=== PATIENT | male | born 1945 | race Caucasian/White ===

== ENCOUNTER 2024-02-17 08:37 | Outpatient (REF) | payer MEDICARE, SELFPAY ==
--- NOTE | ~2024-02-17 | XR_ITS ---
EXAMINATION: XR PELVIS CLINICAL INFORMATION: Hip pain. COMPARISON: None available. TECHNIQUE: 2 AP views of the pelvis. FINDINGS: Degenerative changes in the imaged lower lumbar spine. Diffuse demineralization. Atherosclerotic vascular calcifications. Linear radiodense tiny devices overlie the pubic symphysis. Left total hip arthroplasty appears intact and AP views. Severe degenerative changes right hip with superolateral joint space narrowing and abundant hypertrophic change. XR/XR pelvis 1-2V IMPRESSION: 1. Severe degenerative changes in the right hip. 2. Left total hip arthroplasty appears intact and AP views.
== END 2024-02-17 08:38 | disposition home or self-care (01) ==
LOC: HO.HOSX 08:37
PROVIDERS: Visit Provider Orthopaedic Surgery
DX: M16.11 Unilateral primary osteoarthritis, right hip (principal); Z96.642 Presence of left artificial hip joint
CPT/HCPCS: 72170; 99202

== ENCOUNTER 2024-02-17 11:02 | Outpatient (AMB) | payer MEDICARE, SELFPAY ==
--- NOTE | 2024-02-17 11:30 | A.OFFVIS_ITS ---
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 Patient express he had been pain for a few years but over the past 6 monthly the pain has gradually worsened and is now consistent. He is unable to stand up straight due to his pains. Ambulation and getting up from sitting or out of car has become the most difficult. He says by the time he made it into the office from the parking lot for this visit his him/leg was in severe pain. Has tried Tylenol with very little relief. Denies numbness, tingling, and injury to right hip. Would like to talk about surgery, has not been able to go back to the gym in 4 years and would like to get back to it. hx of left KAYLA done in [place] 2 years ago. hx of pre-diabetes , claims it is under control. 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 Patient express he had been pain for a few years but over the past 6 monthly the pain has gradually worsened and is now consistent. He is unable to stand up straight due to his pains. Ambulation and getting up from sitting or out of car has become the most difficult. He says by the time he made it into the office from the parking lot for this visit his him/leg was in severe pain. Has tried Tylenol with very little relief. Denies numbness, tingling, and injury to right hip. Would like to talk about surgery, has not been able to go back to the gym in 4 years and would like to get back to it. hx of left KAYLA done in [place] 2 years ago. hx of pre-diabetes , claims it is under control. Physical Exam Vital Signs: BMI result Body Mass Index 27.8 Extrem Other: + impingement and severe branden niwth passive motion right hip + Trendelenberg gait Results Reviewed Results Reviewed: I personally reviewed relevant radiographs. Severe right hip OA Left KAYLA in expected post operative position with no hardware complications or evidence of loosening Assessment & Plan Assessment & Plan (1) Arthritis of right hip: Code(s): M16.11 - Unilateral primary osteoarthritis, right hip Category: Medical Plan: This is an active 78 yo M with severe chronic right hip pain secondary to hip OA. He is unable to ambulate comfortably or exercise. He is on coumadin and a diabetic. I discussed treatment options with him. He had a successful left KAYLA and I recommend right hip arthroplasty. I discussed the risks benefits and alternatives including but not limited to the risk of pain, infection, stiffness, need for further surgery as well as potential medical complications such as blood clots, pulmonary embolism and cardiac complications. He will need medical clearance and we will initiate our pre-operative clearance process. He is very uncomfortable and we will try to expedite this. Orders: Orders XR pelvis 1-2V 02/17/24 M25.559 - Pain in unspecified hip Coding Level of Care Code New Pt Level 4 (91120) Diagnoses Arthritis of right hip M16.11
[2024-02-17 11:43] VITALS: BMI 27.8
== END 2024-02-17 12:17 | disposition home or self-care (01) ==
PROVIDERS: PCP Nurse Practitioner Adult Health; Visit Provider Orthopaedic Surgery
DX: M16.11 Unilateral primary osteoarthritis, right hip (principal)
CPT/HCPCS: 99204

== ENCOUNTER → 2024-02-22 09:04 | Outpatient (BNVA) | payer MEDICARE, SELFPAY | PROVIDERS: PCP Nurse Practitioner Adult Health | DX: Z01.818 Encounter for other preprocedural examination (principal) ==

== ENCOUNTER 2024-03-16 10:24 | Outpatient (REF) | payer MEDICARE, SELFPAY ==
--- NOTE | ~2024-03-16 | XR_ITS ---
EXAMINATION: XR HIP, RIGHT CLINICAL INFORMATION: Preop right hip total arthroplasty. COMPARISON: 02/17/2024. TECHNIQUE: Three views of the right hip. FINDINGS: -Surgical measuring devices overlie the central and right paramedian pelvis. PELVIS: -Diffuse demineralization. -There is been a total left hip arthroplasty with femoral and acetabular components intact and in anatomic alignment. No evidence of periprosthetic lucency, fracture, subsidence, or complication. Mild heterotopic bone abutting the lateral acetabular prosthesis, unchanged. -Partial ankylosis of both SI joints. -Severe spondylosis of L5-S1 with bridging osteophytes. -No suspicious bone lesions. -Enthesopathy of the gluteal and hamstrings insertions. -Soft tissues demonstrate vascular calcifications. -Fiducial markers in the region of the prostate gland. -Calcification of the vas deferens. RIGHT HIP: -Severe osteoarthritis present with complete loss of superior joint space, [id number] appearance, subchondral cysts sclerosis and cystic changes of both the superior femoral head and acetabulum. There are proliferative prominent subcapital and marginal acetabular osteophytes. No subchondral collapse. XR/XR hip RT min 2V IMPRESSION: 1. Severe osteoarthritis right hip joint. 2. No acute findings. 3. Left total hip arthroplasty without complication. 4. Ancillary findings as discussed. Electronically signed by: Denis Elise MD 05/08/2024 03:30 PM EDT
== END 2024-03-16 10:25 | disposition home or self-care (01) ==
LOC: HO.HOSX 10:24
PROVIDERS: Visit Provider Physician Assistant
DX: M25.551 Pain in right hip (principal)
CPT/HCPCS: 73502

== ENCOUNTER → 2024-03-16 13:19 | Outpatient (BNV) | payer MEDICARE, SELFPAY | PROVIDERS: Visit Provider Radiology Diagnostic Radiology | DX: M16.11 Unilateral primary osteoarthritis, right hip (principal) | CPT/HCPCS: 73502 ==

== ENCOUNTER 2024-03-17 10:50 | Outpatient (AMB) | payer MEDICARE, SELFPAY ==
--- NOTE | 2024-03-17 09:15 | MHC.OFFVIS ---
Vital Signs 03/17/24 10:58 Height 6 ft Weight 205 lb BMI 27.8 Intake Visit Reasons: Pre-Op: R KAYLA w/NE 03/21/24 Intake Note: Radu a 78 year old male who presents today for a preoperative visit for his right KAYLA on 03/21/24 with NE. Pain management agreement reviewed and signed. Allergies No Known Allergies Allergy (Verified 03/17/24 10:57) Medication List - Last Reconciled 03/17/24 by Delisa Hartmann PA-C allopurinol 100 mg PO QPM atorvastatin 10 mg PO QPM dorzolamide 2% 1 drp ophthalmic (eye) BID glipizide 2.5 mg PO QPM latanoprost 0.005% 1 drp ophthalmic (eye) BEDTIME lisinopril 10 mg PO QAM multivitamin 1 tab PO QAM walker Folding Front wheeled walker warfarin 5 mg PO QAM HPI Comments Details: Mr Portillo presents to the office today for preop visit. He is scheduled for right total hip arthroplasty with Dr. Ramirez. He continues to have ongoing pain and difficulty with ambulation in the right hip, which is affecting his quality of life; therefore, he has elected to move forward with surgery. [facility] Medical History (Updated 03/13/24 @ 14:16 by Milena Flowers RN) Arthritis Sleep apnea Chronic renal insufficiency Aortic stenosis Gout Hyperlipidemia Atrial fibrillation Prostate cancer Diabetes HTN (hypertension) Surgical History Hx of bilateral cataract extraction Hx of cholecystectomy History of lobectomy of thyroid H/O colonoscopy History of total left hip arthroplasty Social History Housing Other:: apartment in a 4 family home Are you a primary child care education coordinator to a significant other at home: No Do you presently have visiting nurse or other home services: No Patient Tobacco Use Status: Never used Tobacco Review of Systems Const All systems reviewed & are unremarkable except as noted in HPI and below Physical Exam Vital Signs: BMI result Body Mass Index 27.8 Const General: cooperative, healthy appearing, comfortable, no acute distress, well developed and alert Orientation/consciousness: patient oriented x3 HEENT Head: Yes normal to inspection, Yes normocephalic and Yes atraumatic Eyes General: appearance normal, both eyes and all related structures Neck Neck: Yes normal visual inspection and Yes no lymphadenopathy Resp Effort & Inspection: normal respiratory effort and able to speak in complete sentences Cardio Rate: regular rate Peripheral pulses: Peripheral pulses 2+ throughout GI Inspection: Yes normal to inspection Palpation (GI): Soft to palpation Skin General skin exam: no rashes or lesions noted Neuro General: patient oriented x3 Extrem Other: Right hip: Normal to inspection. No open wound or abrasion. Pain with ROM of hip and hip flexion. Calf supple, nontender. NVI. Psych Appearance: grossly normal Mental Status: mental status grossly normal Assessment & Plan Assessment & Plan (1) Arthritis of right hip: Code(s): M16.11 - Unilateral primary osteoarthritis, right hip Category: Medical Plan I discussed in detail the procedure and what to expect pre and post operatively. We discussed the risks, benefits and alternatives to the surgery as well as the rehabilitation course. The risks; which include, but are not limited to infection, bleeding, nerve injury, ongoing pain, swelling, and stiffness, perioperative risk of injury to bones and soft tissues, and blood clots. I?ve answered all questions and with their understanding they have consented to move forward with Right total hip arthroplasty with Dr. Ramirez Coumadin for afib--> no bridging , resume the night of surgery Mod-severe aortic stenosis. SHARAD: No need for CPAP >5years d/t weight loss DM: glipizide only, A1C 7.1% Pre op clearance note from PCP---> Orders: Orders PT Evaluation and Treatment Today Z96.641 - Presence of right artificial hip joint Patient Instructions: Scribed for Delisa Hartmann PA-C, by Darrell Celis medical records library professor, on 03/17/2024 at 11:00 AM EST.? I, Delisa Hartmann PA-C, have personally reviewed and agree with the information entered by the scribe. Coding Level of Care Code Est Pt Level 3 (05755) Diagnoses Arthritis of right hip M16.11
[2024-03-17 10:58] VITALS: BMI 27.8
== END 2024-03-17 11:20 | disposition home or self-care (01) ==
PROVIDERS: PCP Nurse Practitioner Adult Health; Visit Provider Physician Assistant
DX: M16.11 Unilateral primary osteoarthritis, right hip (principal)
CPT/HCPCS: 99024

== ENCOUNTER → 2024-03-17 10:50 | Outpatient (BNVA) | payer MEDICARE, SELFPAY | PROVIDERS: PCP Nurse Practitioner Adult Health; Visit Provider Physician Assistant | DX: Z01.818 Encounter for other preprocedural examination (principal); M16.11 Unilateral primary osteoarthritis, right hip | CPT/HCPCS: 99212 ==

== ENCOUNTER → 2024-03-21 06:05 | Outpatient (BNV) | payer MEDICARE, SELFPAY | PROVIDERS: PCP Nurse Practitioner Adult Health; Visit Provider Orthopaedic Surgery | DX: M16.11 Unilateral primary osteoarthritis, right hip (principal); Z47.1 Aftercare following joint replacement surgery; Z96.641 Presence of right artificial hip joint | CPT/HCPCS: 27130; 99024 ==

== ENCOUNTER → 2024-03-21 06:05 | Outpatient (BNV) | payer MEDICARE, SELFPAY | PROVIDERS: PCP Nurse Practitioner Adult Health; Visit Provider Physician Assistant | DX: I48.91 Unspecified atrial fibrillation (principal); I35.0 Nonrheumatic aortic (valve) stenosis; M16.11 Unilateral primary osteoarthritis, right hip | CPT/HCPCS: 99222 ==

== ENCOUNTER → 2024-03-21 06:05 | Outpatient (BNV) | payer MEDICARE, SELFPAY | PROVIDERS: PCP Nurse Practitioner Adult Health; Visit Provider Internal Medicine | DX: I48.91 Unspecified atrial fibrillation (principal); I35.0 Nonrheumatic aortic (valve) stenosis | CPT/HCPCS: 93010; 99223 ==

== ENCOUNTER 2024-03-21 06:19 | Inpatient (IN) | payer MEDICARE, SELFPAY ==
[2024-03-13 14:19] VITALS: BP 136/61; PULSE 58; RESP 20; O2SAT 97; BMI 28.7
--- NOTE | 2024-03-13 14:40 | HO.ANESPROP2 ---
Documented by User: Freida Saenz NP 03/20/24 09:17 HPI - Anesthesia Eval Consult details Narrative: 78yo M for Right Hip Total Replacement, 03/21/24 Medically optimized per [facility] preop clinic Cardiac optimized per [facility] cardiology No recent illness No CP/SOB with walking regularly No edema, no orthopnea Coumadin for afib Mod-severe aortic stenosis. SHARAD: No need for CPAP >5years d/t weight loss DM: glipizide only, A1C 7.1% High risk case reviewed with Dr Alvarado. [facility] Active Problems Active Problems: All Active Problems Arthritis of right hip (Acute) Past Medical History Medical History Arthritis Sleep apnea Chronic renal insufficiency Aortic stenosis Gout Hyperlipidemia Atrial fibrillation Prostate cancer Diabetes HTN (hypertension) Family History Family history of problems with anesthesia: Unobtainable (Pt adopted) Surgical History Surgical History Hx of bilateral cataract extraction Hx of cholecystectomy History of lobectomy of thyroid H/O colonoscopy History of total left hip arthroplasty History of Problems with Anesthesia: No Social History Social History Housing Other:: apartment in a 4 family home Are you a primary home health care coordinator to a significant other at home: No Do you presently have visiting nurse or other home services: No Patient Tobacco Use Status: Never used Tobacco Use of substances other than those prescribed or required for medical reasons: No Have you been hit, kicked, punched, or otherwise hurt by someone within the past year? If so, by whom?: No Are you DNR?: No Advance Directives Information Provided: Yes (as above noted) Advance Directives on File: No Recently lost weight without trying: No Eating poorly because of decreased appetite: No Nutrition Risks: No Nutritional Risk Poor oral hygiene: No (edentulous) Meds Allergies Allergy/AdvReac Type Severity Reaction Status Date / Time No Known Allergies Allergy Verified 03/21/24 07:09 Home Medications ?Medication ?Instructions ?Recorded ?Confirmed ?Last Taken ?Type allopurinol 100 mg tablet 100 mg PO QPM 02/17/24 03/17/24 Unknown History atorvastatin 10 mg tablet 10 mg PO QPM 02/17/24 03/17/24 Unknown History glipizide 2.5 mg tablet 2.5 mg PO QPM 02/17/24 03/17/24 Unknown History warfarin 5 mg tablet 5 mg PO QAM 02/17/24 03/17/24 03/16/24 History dorzolamide 2 % eye drops 1 drp ophthalmic (eye) BID 03/10/24 03/17/24 Unknown History latanoprost 0.005 % eye drops 1 drp ophthalmic (eye) BEDTIME 03/10/24 03/17/24 Unknown History lisinopril 10 mg tablet 10 mg PO QAM 03/10/24 03/17/24 Unknown History multivitamin 1 tab PO QAM 03/13/24 03/17/24 Unknown History Exam Height,Weight and Vital Signs: Height 6 ft Weight 96.162 kg Last Vital Signs Pulse 58 03/13/24 14:19 Resp 20 03/13/24 14:19 BP 136/61 03/13/24 14:19 Pulse Ox 97 03/13/24 14:19 O2 Del Method Room Air 03/13/24 14:19 Pertinent Lab Results Pertinent Lab Results: Lab Results 03/13/24 03/13/24 Range/Units 14:30 15:11 Nasal Screen MRSA (PCR) NEGATIVE (Negative) Nasal S. aureus Screen NEGATIVE (Negative) Nasal MRSA/S.aureus Interp SEE NOTE Blood Type B Positive Antibody Screen NEGATIVE Narrative Narrative: EKG 09/2023 Ventricular Rate: 51 BPM QRS Duration: 72 ms Q-T Interval: 474 ms QTC Calculation(Bazett): 436 ms R Agenda: -22 degrees T Agenda: 16 degrees Atrial fibrillation with slow ventricular response Nonspecific ST abnormality Abnormal ECG When compared with ECG of 23-SEP-2023 09:52, No significant change was found Confirmed by AMANDA CANAS, LISS ([id number]) on 09/26/2023 7:48:19 PM ECHO 01/2024 Summary The left ventricular size is normal. Left ventricular wall thickness is normal. The LV systolic function is normal . The left ventricular ejection fraction is 60-65 %. No definite regional wall motion abnormalities. Unable to assess diastolic function due to atrial fibrillation. There is moderate to severe aortic stenosis. There is a peak gradient of 40 mmHg, mean gradient of 20mmHg with a calculated valve area of 1.0 cm2 and OI of 0.26. There is no evidence of aortic regurgitation. There is mild dilation of the aortic root (3.9 cm) . The right ventricle is normal in size and function. The pulmonary artery systolic pressure estimation is 30-35 mmHg. Biatrial enlargement. Comparison Comparison is made to the study of August 10, 2023. There is no significant change. Airway Loose/Missing/Broken Teeth: Yes (Edentulous) Heart: RRR +M Lungs: CTAB Assessment and Plan Assessment Anesthesia Assessment: Anesthesia Plan Discussed and PAT Visit Final Anesthetic Review Family History of Problems with Anesthesia: Unobtainable (Pt adopted) History of Problems with Anesthesia: No Documented by User: Ashu Brunson MD 03/21/24 10:07 [facility] Past Medical History Medical History Arthritis Sleep apnea Chronic renal insufficiency Aortic stenosis Gout Hyperlipidemia Atrial fibrillation Prostate cancer Diabetes HTN (hypertension) Surgical History Surgical History Hx of bilateral cataract extraction Hx of cholecystectomy History of lobectomy of thyroid H/O colonoscopy History of total left hip arthroplasty Social History Social History Housing Other:: apartment in a 4 family home Are you a primary home health care coordinator to a significant other at home: No Do you presently have visiting nurse or other home services: No Patient Tobacco Use Status: Never used Tobacco Use of substances other than those prescribed or required for medical reasons: No Have you been hit, kicked, punched, or otherwise hurt by someone within the past year? If so, by whom?: No Are you DNR?: No Advance Directives Information Provided: Yes (as above noted) Advance Directives on File: No Recently lost weight without trying: No Eating poorly because of decreased appetite: No Nutrition Risks: No Nutritional Risk Poor oral hygiene: No (edentulous) Meds Allergies Allergy/AdvReac Type Severity Reaction Status Date / Time No Known Allergies Allergy Verified 03/21/24 07:09 Home Medications ?Medication ?Instructions ?Recorded ?Confirmed ?Last Taken ?Type allopurinol 100 mg tablet 100 mg PO QPM 02/17/24 03/17/24 Unknown History atorvastatin 10 mg tablet 10 mg PO QPM 02/17/24 03/17/24 Unknown History glipizide 2.5 mg tablet 2.5 mg PO QPM 02/17/24 03/17/24 Unknown History warfarin 5 mg tablet 5 mg PO QAM 02/17/24 03/17/24 03/16/24 History dorzolamide 2 % eye drops 1 drp ophthalmic (eye) BID 03/10/24 03/17/24 Unknown History latanoprost 0.005 % eye drops 1 drp ophthalmic (eye) BEDTIME 03/10/24 03/17/24 Unknown History lisinopril 10 mg tablet 10 mg PO QAM 03/10/24 03/17/24 Unknown History multivitamin 1 tab PO QAM 03/13/24 03/17/24 Unknown History Exam Airway Mallampati Class: II TM Dist: >3cm Neck ROM: Full Denture: Upper and Lower Assessment and Plan Final Anesthetic Review NPO: Yes ASA Class: III Final Preanesthetic Review: No Changes in Pt Med Stat, Meds/Allgs Chart Reviewed, Consent Obtained/Reviewed and Anes Risks/Benef Reviewed Patient Risk: High Procedure Risk: Intermediate Anesthetic Plan Anesthetic Plan: GA Disposition: Standard PACU
[2024-03-13 16:11] LABS: MRSA Nasal PCR NEGATIVE (Negative); SA Nasal PCR NEGATIVE (Negative)
[2024-03-21] VITALS (27 sets, daily range): BP systolic 93–148; BP diastolic 34–72; PULSE 30–51; RESP 6–18; TEMP 36.1–36.8; O2SAT 94–100; BMI 28.5
--- NOTE | 2024-03-21 | ECG_ITS ---
Test Reason : bradycardia Blood Pressure : / mmHG Vent. Rate : 038 BPM Atrial Rate : 000 BPM P-R Int : 000 ms QRS Dur : 076 ms QT Int : 560 ms P-R-T Axes : 000 -23 025 degrees QTc Int : 445 ms Atrial fibrillation with slow ventricular response Low voltage QRS Abnormal ECG No previous ECGs available Referred By: Ashu Brunson Electronically Signed By:CAMILA ROE
--- NOTE | ~2024-03-21 | XR_ITS ---
EXAMINATION: XR PELVIS CLINICAL INFORMATION: Total right hip arthroplasty. COMPARISON: Right hip radiographs dated 03/16/2024. TECHNIQUE: AP view of the pelvis. FINDINGS: Status post total right hip arthroplasty in expected anatomic alignment. No hardware or osseous fracture. No perihardware lucency. No radiopaque foreign body. Redemonstration of a left hip arthroplasty without evidence of complication. XR/XR pelvis 1-2V IMPRESSION: Status post total right hip arthroplasty without evidence of complication.
[2024-03-21] MEDS: Lactated Ringers 1,000 ML 100 ML IVCONT (06:36)
[2024-03-21 07:03] LABS: Glucose, Whole Blood 152 mg/dL (60-115)
[2024-03-21 07:15] LABS: INTERNATIONAL NORM RATIO 1.2 (0.9-1.1); Prothrombin Time 14.5 SEC (11.1-13.3)
--- NOTE | 2024-03-21 07:24 | PC.NURSE ---
dr. alejandre updated that patient pulse can be as low as 40 at rest. baseline is 50-51 awake. at bedside. no interventions at this time. ok to proceed.
--- NOTE | 2024-03-21 07:31 | MHC.SHP ---
Pre-Procedural Eval Section A - 24 Hr Update-Section A only Date of Service: 03/21/24 The patient is an INPATIENT: No Changes since office visit: No Cold of Flu in the past 2 weeks, No New Medical Problems, No Changes in Medication and No Patient answered all questions The patient has been examined within 24 hours of the surgical procedure. The History & Physical has been completed within 30 days and I have reviewed it.: Yes Section B - Complete if H&P > 30 days Chief Complaint: Unilateral primary osteoarthritis, right hip Allergies: Allergies Allergy/AdvReac Type Severity Reaction Status Date / Time No Known Allergies Allergy Verified 03/21/24 07:09 Plan I have reviewed the history and physical and performed a pertinent physical examination on my patient. No changes have occurred unless specified. Time Spent With Patient Time: Total time managing care of this patient today ____ minutes.
--- NOTE | 2024-03-21 09:37 | P.BOP_ITS ---
Brief Operative Note Date of Service: 03/21/24 Pre-op diagnosis: Right hip OA Post-op diagnosis: same Procedure: Right KAYLA Implants: Zi Trident2 58, 35 mm, 30 mm 6.5 screws, 20 deg liner Zi Accolade2 #[id number] with + 5/36 ceramic femoral head Surgeon: Luiz Ramirez MD Anesthesia: GETA Was an Laborer Heading used for this Procedure?: Yes Laborer Heading: Delisa Hartmann Estimated blood loss (mL): 200 IV fluids (mL): 1,000 Pathology: other Condition: stable Disposition: PACU
--- NOTE | 2024-03-21 09:41 | W.PM.OPN ---
Operative Note Operative Note Date of Service: 03/21/24 Narrative: Date of Service: 03/21/24 Pre-op diagnosis: Right hip OA Post-op diagnosis: same Procedure: Right KAYLA Implants: [place] Trident2 58, 35 mm, 30 mm 6.5 screws, 20 deg liner Zi Accolade2 #5 127 with + 5/36 ceramic femoral head Surgeon: Luiz Ramirez MD Anesthesia: GETA Was an Motor Patrol Operator used for this Procedure?: Yes Motor Patrol Operator: Delisa Hartmann Estimated blood loss (mL): 200 IV fluids (mL): 1,000 Pathology: other Condition: stable Disposition: PACU Patient was brought into the operating room and placed in the right lateral decubitus position. All bony prominences were well padded and the limb was prepped and draped in standard sterile fashion. A time-out was called to identify proper site procedure proper surgeon IV antibiotics and 1 g of tranexamic acid were administered. His hip was in fixed external rotation. I could not internally rotate it to neutral. He was mildly flexed. I began by making a curvilinear incision over the posterolateral aspect of the greater trochanter. Dissection was taken down to the tensor fascia which was incised in line with the incision and a Charnley retractor was placed. Cautery was used to maintain hemostasis. The hip was internally rotated as much as possible and the external rotators were identified. The vessels were cauterized and a full-thickness capsular/external rotator layer was developed starting just proximal to the piriformis. This layer was tagged and a dull Hohmann retractor was placed underneath the neck in the hip was dislocated. A neck cut was made 1 cm proximal to the lesser trochanter and the head and neck were removed and measured 55mm on the back table. The head was deformed and eburnated. I then removed the labrum and cauterized the fovea. I started with a 48 reamer and medialized to the inner table. I sequentially reamed up to a size 58 and impacted a 58mm cup at 45 degrees of inclination and 25 degrees of version. The cup was shallow and flattened posteriorly. I therefore placed 2 acetabular screws 1 measuring 35 mm and 130 mm. Standard AO technique was used and the screw was intraosseous at all times. I then placed my 20 degree posterior lipped liner. There were extensive osteophytes superiorly, medially and inferiorly. I removed these osteophytes from around the acetabulum to prevent impingement. A small curved osteotome was used and the soft tissues were protected with a dull Hohmann retractor. A Werewolf cautery wand was used to maintain hemostasis. I identified the piriformis insertion and used this as a starting point for my laurieie cutter. The medius tendon was protected with a Hibs retractor. A Charnley awl was inserted in the canal and a curved curette used to remove the lateral bone. I irrigated copiously. I then sequentially broached in the patient's natural version to a size 5 and placed my trial implants. I used a #5/127/+0 based on my pre-operative template. He continued to be stiff ain internal rotation but improved from prior. The +0 dislocated with 5-10 degrees of internal rotation while flexed. Therefore I placed a +5 trial and was much more satisfied with the stability. I removed all instrumentation and copiously irrigated. I placed my final femoral implant and again took the hip through range of motion and was satisfied with the stability and length. The final +5 implant was impacted in place and the hip reduced. I then irrigated copiously and placed 1 g of local tranexamic acid. I performed a capsular closure with 2.0 fiberwire, Angeles's fascia with 0 Vicryl, subcuticular with 2-0 Vicryl and the skin with naomi. Patient was placed into a sterile dressing. Patient was extubated brought to the recovery room in stable condition. There were no known complications.
--- NOTE | 2024-03-21 10:15 | PM.DS ---
DS: Providers Provider Date of Service: 03/21/24 <Delisa Hartmann PA-C - Last Filed: 03/21/24 14:00> Primary care physician: Lou Hernandez NP <Alison Lynch PA-C - Last Filed: 03/21/24 10:17> DS: Transfer Hospital Acceptance Reason for Transfer: Lost HR post op <Delisa Hartmann PA-C - Last Filed: 03/21/24 14:00> Name of Facility: [facility] <Delisa Hartmann PA-C - Last Filed: 03/21/24 14:00> Accepting Provider: <Delisa Hartmann PA-C - Last Filed: 03/21/24 14:00> DS: Summary Hospital Course Hospital Course: The patient underwent a successful right total hip arthroplasty, they were transferred to PACU and while in PACU his HR dropped into the 30's. Cardiology consult was placed STAT with the following recommendations. Per documentation, he does have atrial fibrillation with somewhat slow response which indicates underlying conduction system disease. He is not on any rate control drugs or antiarrhythmics at baseline. The current worsening of bradycardia could be related to the anesthesia as well as pain medications. Clinically, he seems hemodynamically stable and does not have any presyncope type symptoms. Continue to monitor. Transcutaneous pads. Message sent to Dr. Castro as well as EP- Dr. Mann regarding further care including indication for pacemaker. (2) Nonrheumatic aortic (valve) stenosis: Status: Acute Per 's note, thought to be moderate to severe aortic stenosis but more so in the moderate range. Not thought to be hemodynamically significant at this time. No acute implications in this setting but aortic stenosis can increase vivian-operative complication rate including postoperative hypotension extra. However, he seems hemodynamically stable now. ADDENDUMAlso discussed with Dr. Mann-recommends telemetry floor in [facility]. Awaiting bed. ADDENDUMDiscussed with . Accepted for transfer. Potentially pacemaker placement. POD 0 the patient should resume his home dose of Coumadin 5mg PO QAm with an INR goal of 2-3 PT/OT: WBAT with a walker, gait training, glute / hip flexor strength, posterior precautions Keep Aquacel dressing clean dry and intact at all times Any questions please contact [facility] [phone] Post op Appt 04/06/24 13:30 [facility] [place] [place] [facility] Delisa Hartmann PA-C <Alison Lynch PA-C - Last Filed: 03/21/24 10:17> Time Attestation Discharge Coordination Time (in mins): 30 <Delisa Hartmann PA-C - Last Filed: 03/21/24 14:00> Quality: Safe Use of Opioids Does Pt have an Active Cancer Diagnosis on the Problem List?: No <Delisa Hartmann PA-C - Last Filed: 03/21/24 14:00> Quality: Stroke Does the patient have a stroke diagnosis?: No <Delisa Hartmann PA-C - Last Filed: 03/21/24 14:00> Physical Exam Vital Signs: Vital Signs: Last Vital Signs Temp 97 F 03/21/24 09:50 Pulse 38 L 03/21/24 10:05 Resp 18 03/21/24 10:05 BP 121/34 L 03/21/24 10:05 Pulse Ox 95 03/21/24 10:05 O2 Del Method Nasal Cannula 03/21/24 10:05 O2 Flow Rate 2 03/21/24 10:05 BMI result Body Mass Index 28.5 <Alison Lynch PA-C - Last Filed: 03/21/24 10:17> Const: General: cooperative, healthy appearing and no acute distress <Alison Lynch PA-C - Last Filed: 03/21/24 10:17> Resp: Effort & Inspection: normal respiratory effort and able to speak in complete sentences <Alison Lynch PA-C - Last Filed: 03/21/24 10:17> Cardio: Rate: regular rate <Alison Lynch PA-C - Last Filed: 03/21/24 10:17> Peripheral pulses: Peripheral pulses 2+ throughout <Alison Lynch PA-C - Last Filed: 03/21/24 10:17> GI: Palpation (GI): Soft to palpation <CLARICE MontoyaC - Last Filed: 03/21/24 10:17> Skin: Lesions: no lesions <Alison Lynch PA-C - Last Filed: 03/21/24 10:17> Rashes: no rashes <Alison Lynch PA-C - Last Filed: 03/21/24 10:17> Extrem: Other: right hip dressing is c/d/i. Able to dorsi/plantar flex. Calf is supple and nontender. Sensation intact. Pedal pulse intact. <Alison Lynch PA-C - Last Filed: 03/21/24 10:17> DS: Data Data Completed and Pending Pending studies at discharge: Pending at discharge 03/21/24 08:22 Surgical [PTH] Routine <ROB Montoya Last Filed: 03/21/24 10:17> Labs on day of discharge: Laboratory Results - last 24 hr 03/21/24 03/21/24 06:44 06:58 PT 14.5 H INR 1.2 H POC Glucose 152 H <Alison Lynch PA-C - Last Filed: 03/21/24 10:17> Discharge Plan Discharge Patient Disposition: Home, Self-Care <Alison Lycnh PA-C - Last Filed: 03/21/24 10:17> Referrals: Delisa Hartmann PA-C [Physician Metal Fabricator Apprentice] - 04/06/24 1:30 pm <Alison Lynch PA-C - Last Filed: 03/21/24 10:17> Discharge Medications: No Action (DME) walker Misc See Rx Instructions .MEDSUPPLY Qty: 1 0RF Rx Instructions: Folding Front wheeled walker latanoprost 0.005 % drops 1 drp ophthalmic (eye) BEDTIME lisinopril 10 mg tablet 10 mg PO QAM dorzolamide 2 % drops 1 drp ophthalmic (eye) BID multivitamin Tablet 1 tab PO QAM warfarin 5 mg tablet 5 mg PO QAM allopurinol 100 mg tablet 100 mg PO QPM atorvastatin 10 mg tablet 10 mg PO QPM glipizide 2.5 mg tablet 2.5 mg PO QPM <Alison Lynch PA-C - Last Filed: 03/21/24 10:17> Diet: Advance to usual diet <Alison Lynch PA-C - Last Filed: 03/21/24 10:17> Advance to usual diet <Delisa Hartmann PA-C - Last Filed: 03/21/24 14:00> Activity on Discharge: Use cane or walker <Alison Lynch PA-C - Last Filed: 03/21/24 10:17> Use cane or walker <Delisa Hartmann PA-C - Last Filed: 03/21/24 14:00> Activity Restrictions/Additional Instructions: Physical Therapy for total hip arthroplasty: posterior precautions, gait training, ROM, strength Limit stair climbing No showering, no tub bath-keep dressing clean, dry and intact No driving x6 weeks Continue Coumadin INR goal between 2-3 Follow up with [facility] [place] [place] [facility] in 2 weeks <Alison Lynch PA-C - Last Filed: 03/21/24 10:17> Print Language: Georgian <Alison Lynch PA-C - Last Filed: 03/21/24 10:17>
--- NOTE | 2024-03-21 10:17 | W.MHC.F2F ---
Service Date Service Date: 03/21/24 Encounter Date of encounter: 03/21/24 Reasons for Services Signs and symptoms assessed: s/p LTHA Pt. is considered homebound due to recent surgery. Unable to drive, poor balance, poor gait mechanics. Reason for physical therapy: home safety and mobility, therapeutic exercises, restore joint function, gait/transfer training, assess need for DME and ADL training Reason for occupational therapy: home safety and mobility, therapeutic exercises, restore joint function, gait/transfer training, assess need for DME and ADL training Homebound: Leaving the home is medically contraindicated at this time without the asist of a device and/or another person due th the listed conditions above and below. Reason homebound: unsteady gait / fall risk, leg weakness, pain with ambulation, pain with transfers, poor balance / fall risk and unable to drive Certification: Based on the above findings, I certify that this patient is confined to the home and needs intermittent retirement care, physical therapy and/or speech therapy, or continues to need occupational therapy. The patient is under my care, and I have initiated the establishment of the plan of care. The patient will be followed by a physician who will periodically review the plan of care. Time Spent With Patient Time: Total time managing care of this patient today ____ minutes.
[2024-03-21 10:51] LABS: Glucose, Whole Blood 184 mg/dL (60-115)
--- NOTE | 2024-03-21 11:03 | PM.CNCAR ---
History of Present Illness History of Present Illness Date of Service: 03/21/24 Chief complaint: Unilateral primary osteoarthritis, right hip Narrative: This is a cardiology consultation for bradycardia after hip replacement. Patient is generally seen at [facility]. He was seen in preoperative evaluation in January of this year by Dr. Castro. At that time, notes indicate atrial fibrillation with slow ventricular response but not profoundly slow. He also had moderate to severe aortic stenosis. Based on that, it was felt that he would be at acceptable risk to proceed with hip replacement. Today morning, he underwent hip replacement in our operating room. Following that, he has been bradycardic and hence we are consulted. Patient himself does not have any clear cardiac symptoms at this time. He has atrial fibrillation with slow response around 30-40/Min but blood pressure is stable and he does not have any dizziness or presyncope or any other symptoms. Prior to the surgery, the heart rate was about 50/Min per anesthesia. Review of Systems Review of Systems: Yes all other systems are reviewed and are negative Constitutional: Constitutional: Reports as per HPI and Reports no additional constitutional complaints Eyes: Eyes: Reports as per HPI and Denies no additional eye complaints ENT: Denies system reviewed and no additional complaints, except as documented and Reports as per HPI Cardiovascular: Cardiovascular: Reports as per HPI, Reports no additional cardiovascular complaints, Denies acrocyanosis, Denies cool extremities, Denies chest pain, Denies leg edema, Denies lightheadedness, Denies palpitations and Denies dyspnea Respiratory: Respiratory: Reports as per HPI, Denies no additional respiratory complaints and Denies dyspnea Gastrointestinal: Gastrointestinal: Reports as per HPI and Denies no additional gastrointestinal complaints Genitourinary: Genitourinary: Reports no additional male genitourinary complaints and Reports as per HPI Musculoskeletal: Musculoskeletal: Reports no additional musculoskeletal complaints and Reports as per HPI Integumentary/Breasts: Skin/Breast: Reports system reviewed and no additional complaints, except as docu Neurologic: Reports system reviewed and no additional complaints, except as documented and Reports as per HPI Psychiatric: Psychiatric: Reports no additional psychiatric complaints and Reports as per HPI Endocrine: Endocrine: Reports no additional endocrine complaints, Reports as per HPI and Denies palpitations Hematologic/Lymphatic: Hematologic/Lymphatic: Reports no additional hematologic/lymphatic complaints and Reports as per HPI Allergic/Immunologic: Allergic/Immunologic: Reports no additional allergic/immunologic complaints and Reports as per HPI PMFSH Past Medical History Medical History (Updated 03/21/24 @ 11:07 by Truong Vuong MD) Arthritis Sleep apnea Chronic renal insufficiency Aortic stenosis Gout Hyperlipidemia Atrial fibrillation Prostate cancer Diabetes HTN (hypertension) Family History Pertinent family history: No pertinent family history Surgical History Surgical History Hx of bilateral cataract extraction Hx of cholecystectomy History of lobectomy of thyroid H/O colonoscopy History of total left hip arthroplasty Social History Social History Housing Other:: apartment in a 4 family home Are you a primary hospice care sales consultant to a significant other at home: No Do you presently have visiting nurse or other home services: No Patient Tobacco Use Status: Never used Tobacco Use of substances other than those prescribed or required for medical reasons: No Have you been hit, kicked, punched, or otherwise hurt by someone within the past year? If so, by whom?: No Are you DNR?: No Advance Directives Information Provided: Yes (as above noted) Advance Directives on File: No Recently lost weight without trying: No Eating poorly because of decreased appetite: No Nutrition Risks: No Nutritional Risk Poor oral hygiene: No (edentulous) Meds Allergies Allergy/AdvReac Type Severity Reaction Status Date / Time No Known Allergies Allergy Verified 03/21/24 07:09 Active Medications: Current Medications Hydromorphone HCl (Hydromorphone Hcl 0.5 Mg/0.5 Ml Syringe) 0.25 mg IVPUSH Q5M PRN PRN Reason: Pain, Moderate(Pain Scale 4-6) Stop: 03/21/24 16:00 Lactated Ringer's (Lr) 1,000 mls @ 100 mls/hr IVCONT .Q10H STEF Last Admin: 03/21/24 06:36 Dose: 100 mls/hr Ondansetron HCl (Ondansetron Hcl 4 Mg/2 Ml Vial) 4 mg IVPUSH ONCE PRN PRN Reason: Nausea and Vomiting Stop: 03/21/24 16:00 Home Medications ?Medication ?Instructions ?Recorded ?Confirmed ?Last Taken ?Type allopurinol 100 mg tablet 100 mg PO QPM 02/17/24 03/17/24 Unknown History atorvastatin 10 mg tablet 10 mg PO QPM 02/17/24 03/17/24 Unknown History glipizide 2.5 mg tablet 2.5 mg PO QPM 02/17/24 03/17/24 Unknown History warfarin 5 mg tablet 5 mg PO QAM 02/17/24 03/17/24 03/16/24 History dorzolamide 2 % eye drops 1 drp ophthalmic (eye) BID 03/10/24 03/17/24 Unknown History latanoprost 0.005 % eye drops 1 drp ophthalmic (eye) BEDTIME 03/10/24 03/17/24 Unknown History lisinopril 10 mg tablet 10 mg PO QAM 03/10/24 03/17/24 Unknown History multivitamin 1 tab PO QAM 03/13/24 03/17/24 Unknown History Physical Exam Vital Signs: Vital Signs: Last Vital Signs Temp 97 F 03/21/24 09:50 Pulse 40 L 03/21/24 10:49 Resp 18 03/21/24 10:49 BP 119/50 L 03/21/24 10:49 Pulse Ox 95 03/21/24 10:49 O2 Del Method Nasal Cannula 03/21/24 10:40 O2 Flow Rate 2 03/21/24 10:40 BMI result Body Mass Index 28.5 Const: General: comfortable and no acute distress Orientation/consciousness: patient oriented x3 HEENT: Other: Unremarkable Head: Yes normal to inspection Neck: Neck: Yes normal visual inspection Chest: Chest palpation & inspection: normal inspection of the chest Resp: Auscultation: clear to auscultation bilaterally Cardio: Palpation: normal PMI Heart sounds: S1 normal heart sound present, S2 normal heart sound present, no gallops, Murmur heart sound present systolic II/ and at the right sternal border and no rubs GI: Palpation (GI): Soft to palpation Back/Spine/Pelvis: Other: unremarkable Skin: General skin exam: no rashes or lesions noted Neuro: General: patient oriented x3 Extrem: General: Yes normal to inspection Psych: Mental Status: mental status grossly normal Objective Labs and Meds Lab results: Laboratory Results - last 24 hr 03/21/24 03/21/24 03/21/24 06:44 06:58 10:47 PT 14.5 H INR 1.2 H POC Glucose 152 H 184 H ECG Interpretation: EKG from 05/28 03:00 shows atrial fibrillation at a rate of 38/Min. Currently on telemetry his rate is anywhere between 35-40/Min. Assessment and Plan (1) Atrial fibrillation with slow ventricular response: Status: Acute Per documentation, he does have atrial fibrillation with somewhat slow response which indicates underlying conduction system disease. He is not on any rate control drugs or antiarrhythmics at baseline. The current worsening of bradycardia could be related to the anesthesia as well as pain medications. Clinically, he seems hemodynamically stable and does not have any presyncope type symptoms. Continue to monitor. Transcutaneous pads. Message sent to Dr. Castro as well as EP- Dr. Mann regarding further care including indication for pacemaker. (2) Nonrheumatic aortic (valve) stenosis: Status: Acute Per 's note, thought to be moderate to severe aortic stenosis but more so in the moderate range. Not thought to be hemodynamically significant at this time. No acute implications in this setting but aortic stenosis can increase vivian-operative complication rate including postoperative hypotension extra. However, he seems hemodynamically stable now. Procedures Date of Service Date of Service: 03/21/24
--- NOTE | 2024-03-21 12:25 | P.CONHOSP_ITS ---
History of Present Illness Data of Consult Primary Care Provider: Lou Hernandez NP [facility] Medical History (Updated 03/21/24 @ 11:07 by Truong Vuong MD) Arthritis Sleep apnea Chronic renal insufficiency Aortic stenosis Gout Hyperlipidemia Atrial fibrillation Prostate cancer Diabetes HTN (hypertension) Surgical History Hx of bilateral cataract extraction Hx of cholecystectomy History of lobectomy of thyroid H/O colonoscopy History of total left hip arthroplasty Social History Housing Other:: apartment in a 4 family home Are you a primary lawn caretaker to a significant other at home: No Do you presently have visiting nurse or other home services: No Patient Tobacco Use Status: Never used Tobacco Use of substances other than those prescribed or required for medical reasons: No Have you been hit, kicked, punched, or otherwise hurt by someone within the past year? If so, by whom?: No Are you DNR?: No Advance Directives Information Provided: Yes (as above noted) Advance Directives on File: No Recently lost weight without trying: No Eating poorly because of decreased appetite: No Nutrition Risks: No Nutritional Risk Poor oral hygiene: No (edentulous) Meds Allergies Allergy/AdvReac Type Severity Reaction Status Date / Time No Known Allergies Allergy Verified 03/21/24 07:09 Active Medications: Current Medications Acetaminophen (Acetaminophen 325 Mg Tablet) 650 mg PO Q6H PRN PRN Reason: Pain, Mild (Pain Scale 1-3), fever or headache Allopurinol (Allopurinol 100 Mg Tablet) 100 mg PO QPM STEF Docusate Sodium (Docusate Sodium 100 Mg Capsule) 100 mg PO BID STEF Dorzolamide HCl (Dorzolamide Hcl 2 % Ophth Sapphire 10 Ml Drpbtl) 1 drop EYE-BOTH BID STEF Hydromorphone HCl (Hydromorphone Hcl 0.5 Mg/0.5 Ml Syringe) 0.25 mg IVPUSH Q5M PRN PRN Reason: Pain, Moderate(Pain Scale 4-6) Stop: 03/21/24 16:00 Hydromorphone HCl (Hydromorphone Hcl 0.5 Mg/0.5 Ml Syringe) 0.25 mg IVPUSH Q4H PRN; Protocol PRN Reason: Pain, Severe (Pain Scale 7-10) Lactated Ringer's (Lr) 1,000 mls @ 100 mls/hr IVCONT .Q10H STEF Stop: 03/22/24 09:40 Cefazolin Sodium/Dextrose (Ancef) 2 gm in 50 mls @ 100 mls/hr IV POSTOP ONE Stop: 03/21/24 14:29 Latanoprost (Latanoprost 0.005 % Ophth Sapphire 2.5 Ml Drops) 1 drop EYE-BOTH BEDTIME [facility] Ondansetron HCl (Ondansetron Hcl 4 Mg/2 Ml Vial) 4 mg IVPUSH ONCE PRN PRN Reason: Nausea and Vomiting Stop: 03/21/24 16:00 Ondansetron HCl (Ondansetron Hcl 4 Mg/2 Ml Vial) 4 mg IVPUSH Q8H PRN PRN Reason: Nausea and Vomiting Oxycodone HCl (Oxycodone Hcl Immed Release 5 Mg Tablet) 5 mg PO Q4H PRN PRN Reason: Pain, Moderate(Pain Scale 4-6) Oxycodone HCl (Oxycodone Hcl Er 10 Mg Tab.Er.12h) 10 mg PO BID [facility] Sodium Chloride (0.9 % Sodium Chloride Flush 3 Ml Syringe) 3 ml IVFLUSH QSHIFT [facility] Warfarin Sodium (Warfarin Sodium 5 Mg Tablet) 5 mg PO QAM [facility] Home Medications ?Medication ?Instructions ?Recorded ?Confirmed ?Last Taken ?Type allopurinol 100 mg tablet 100 mg PO QPM 02/17/24 03/17/24 Unknown History atorvastatin 10 mg tablet 10 mg PO QPM 02/17/24 03/17/24 Unknown History glipizide 2.5 mg tablet 2.5 mg PO QPM 02/17/24 03/17/24 Unknown History warfarin 5 mg tablet 5 mg PO QAM 02/17/24 03/17/24 03/16/24 History dorzolamide 2 % eye drops 1 drp ophthalmic (eye) BID 03/10/24 03/17/24 Unknown History latanoprost 0.005 % eye drops 1 drp ophthalmic (eye) BEDTIME 03/10/24 03/17/24 Unknown History lisinopril 10 mg tablet 10 mg PO QAM 03/10/24 03/17/24 Unknown History multivitamin 1 tab PO QAM 03/13/24 03/17/24 Unknown History Physical Exam Vital Signs and Narrative: Vital Signs: Last Vital Signs Temp 97 F 03/21/24 09:50 Pulse 46 L 03/21/24 11:50 Resp 18 03/21/24 11:50 BP 116/42 L 03/21/24 11:50 Pulse Ox 97 03/21/24 11:50 O2 Del Method Nasal Cannula 03/21/24 11:50 O2 Flow Rate 2 03/21/24 11:50 BMI result Body Mass Index 28.5 Results Labs Labs: Laboratory Results - last 24 hr 03/21/24 03/21/24 03/21/24 06:44 06:58 10:47 PT 14.5 H INR 1.2 H POC Glucose 152 H 184 H
[2024-03-21] MEDS: Acetaminophen 325 MG TABLET 650 MG PO (13:57)
--- NOTE | 2024-03-21 14:40 | P.CONHOSP_ITS ---
History of Present Illness Data of Consult Service Date: 03/21/24 Requesting physician: Delisa Hartmann Primary Care Provider: Lou Hernandez NP [facility] Reason for consult: medical management 78-year-old male with moderate to severe aortic stenosis, CKD stage 3, SHARAD not on CPAP, history of prostate cancer s/p radiation 10/2023, paroxysmal atrial fibrillation anticoagulated with Coumadin, [id number]-ppsyujaqg type 2 diabetes admitted to Orthopedic surgery for management of osteoarthritis of the right hip s/p KAYLA with consult placed to hospitalist service for medical management. Postoperatively has been experiencing persistent bradycardia into the high 30s though is denying any symptoms of lightheadedness, dyspnea, presyncope. Blood pressures are stable. He has been evaluated by cardiology who is recommending transfer to [facility] for possible pacemaker placement. Transcutaneous pacer pads are in place. The patient has no complaints at this time. Review of Systems Review of Systems: Yes all other systems are reviewed and are negative [facility] Medical History (Updated 03/21/24 @ 11:07 by Truong Vuong MD) Arthritis Sleep apnea Chronic renal insufficiency Aortic stenosis Gout Hyperlipidemia Atrial fibrillation Prostate cancer Diabetes HTN (hypertension) Surgical History Hx of bilateral cataract extraction Hx of cholecystectomy History of lobectomy of thyroid H/O colonoscopy History of total left hip arthroplasty Social History Housing Other:: apartment in a 4 family home Are you a primary healthcare liaison to a significant other at home: No Do you presently have visiting nurse or other home services: No Patient Tobacco Use Status: Never used Tobacco Use of substances other than those prescribed or required for medical reasons: No Have you been hit, kicked, punched, or otherwise hurt by someone within the past year? If so, by whom?: No Are you DNR?: No Advance Directives Information Provided: Yes (as above noted) Advance Directives on File: No Recently lost weight without trying: No Eating poorly because of decreased appetite: No Nutrition Risks: No Nutritional Risk Poor oral hygiene: No (edentulous) Meds Allergies Allergy/AdvReac Type Severity Reaction Status Date / Time No Known Allergies Allergy Verified 03/21/24 07:09 Active Medications: Current Medications Acetaminophen (Acetaminophen 325 Mg Tablet) 650 mg PO Q6H PRN PRN Reason: Pain, Mild (Pain Scale 1-3), fever or headache Last Admin: 03/21/24 13:57 Dose: 650 mg Allopurinol (Allopurinol 100 Mg Tablet) 100 mg PO DAILY@1800 [facility] Docusate Sodium (Docusate Sodium 100 Mg Capsule) 100 mg PO BID [facility] Dorzolamide HCl (Dorzolamide Hcl 2 % Ophth Sapphire 10 Ml Drpbtl) 1 drop EYE-BOTH BID [facility] Hydromorphone HCl (Hydromorphone Hcl 0.5 Mg/0.5 Ml Syringe) 0.25 mg IVPUSH Q5M PRN PRN Reason: Pain, Moderate(Pain Scale 4-6) Stop: 03/21/24 16:00 Hydromorphone HCl (Hydromorphone Hcl 0.5 Mg/0.5 Ml Syringe) 0.25 mg IVPUSH Q4H PRN; Protocol PRN Reason: Pain, Severe (Pain Scale 7-10) Lactated Ringer's (Lr) 1,000 mls @ 100 mls/hr IVCONT .Q10H [facility] Stop: 03/22/24 09:40 Latanoprost (Latanoprost 0.005 % Ophth Sapphire 2.5 Ml Drops) 1 drop EYE-BOTH BEDTIME [facility] Ondansetron HCl (Ondansetron Hcl 4 Mg/2 Ml Vial) 4 mg IVPUSH ONCE PRN PRN Reason: Nausea and Vomiting Stop: 03/21/24 16:00 Ondansetron HCl (Ondansetron Hcl 4 Mg/2 Ml Vial) 4 mg IVPUSH Q8H PRN PRN Reason: Nausea and Vomiting Oxycodone HCl (Oxycodone Hcl Immed Release 5 Mg Tablet) 5 mg PO Q4H PRN PRN Reason: Pain, Moderate(Pain Scale 4-6) Oxycodone HCl (Oxycodone Hcl Er 10 Mg Tab.Er.12h) 10 mg PO BID [facility] Sodium Chloride (0.9 % Sodium Chloride Flush 3 Ml Syringe) 3 ml IVFLUSH QSHIFT [facility] Warfarin Sodium (Warfarin Sodium 5 Mg Tablet) 5 mg PO QAM [facility] Home Medications ?Medication ?Instructions ?Recorded ?Confirmed ?Last Taken ?Type allopurinol 100 mg tablet 100 mg PO QPM 02/17/24 03/17/24 Unknown History atorvastatin 10 mg tablet 10 mg PO QPM 02/17/24 03/17/24 Unknown History glipizide 2.5 mg tablet 2.5 mg PO QPM 02/17/24 03/17/24 Unknown History warfarin 5 mg tablet 5 mg PO QAM 02/17/24 03/17/24 03/16/24 History dorzolamide 2 % eye drops 1 drp ophthalmic (eye) BID 03/10/24 03/17/24 Unknown History latanoprost 0.005 % eye drops 1 drp ophthalmic (eye) BEDTIME 03/10/24 03/17/24 Unknown History lisinopril 10 mg tablet 10 mg PO QAM 03/10/24 03/17/24 Unknown History multivitamin 1 tab PO QAM 03/13/24 03/17/24 Unknown History Physical Exam Vital Signs and Narrative: Vital Signs: Last Vital Signs Temp 97 F 03/21/24 09:50 Pulse 38 L 03/21/24 14:10 Resp 12 03/21/24 14:10 BP 109/44 L 03/21/24 14:10 Pulse Ox 100 03/21/24 14:10 O2 Del Method Nasal Cannula 03/21/24 14:10 O2 Flow Rate 2 03/21/24 14:10 BMI result Body Mass Index 28.5 Constitutional - Awake and Alert, No apparent distress Eyes - PERRLA, EOMI Cardiovascular - S1S2, bradycardic , No edema Respiratory - Normal lung expansion, Normal respiratory effort, No respiratory distress, CTA bilaterally Extremities - no calf tenderness bilaterally, no swelling Skin - Warm/Dry Neurological - Alert & oriented x3 Psychological - Appropriate affect Results Labs Labs: Laboratory Results - last 24 hr 03/21/24 03/21/24 03/21/24 06:44 06:58 10:47 PT 14.5 H INR 1.2 H POC Glucose 152 H 184 H Imaging Radiologist's Impressions: Impressions Pelvis X-Ray 03/21/24 11:50 IMPRESSION: Status post total right hip arthroplasty without evidence of complication. Assessment and Plan (1) Atrial fibrillation with slow ventricular response: Status: Acute (2) Nonrheumatic aortic (valve) stenosis: Status: Acute Plan 78-year-old male with moderate to severe aortic stenosis, CKD stage 3, SHARAD not on CPAP, history of prostate cancer s/p radiation 10/2023, paroxysmal atrial fibrillation anticoagulated with Coumadin, [id number] type 2 diabetes admitted to Orthopedic surgery for management of osteoarthritis of the right hip s/p KAYLA with consult placed to hospitalist service for medical management. #OA R hip s/p KAYLA POD0 -plan per ortho surgery #Post-operative bradycardia with atrial fibrillation -cardiology following, consult reviewed -plan for transfer to [facility] for possible pacemaker placement -keep pacer pads in place -monitor on tele -bp stable #Type 2 diabetes -poc glucose, keep npo in case of procedure -hold glipize, hold ssi given npo and possible procedure #HTN -hold lisinopril to prevent post op hypotension # -moderate to severe, possible transfer to [facility] #SHARAD -not on cpap #Paroxysmal atrial fibrillation -hold coumadin for now, resume per ortho surgery Thank you for allowing me to participate in this consult. Signing off at this time. Please do not hesitate to call for further questions or for any acute medical issues
[2024-03-21] MEDS: traMADoL HCL 50 MG TABLET PO (17:00)
[2024-03-21] MEDS: allopurinoL 100 MG TABLET PO (17:01)
[2024-03-21] MEDS: 0.9 % Sodium Chloride Flush 3 ML SYRINGE IVFLUSH (17:02)
--- NOTE | 2024-03-22 09:57 | P.POSTANES_ITS ---
Post Anesthesia Evaluation Post Anesthesia Evaluation Date of Service: 03/21/24 Anesthesia: General Endotracheal-GETA Comments: pt transferred to [facility] for pacer placement due to severe bradycardia.
--- NOTE | 2024-03-22 09:57 | HO.POSTANES ---
Post Anesthesia Evaluation Post Anesthesia Evaluation Date of Service: 03/21/24 Anesthesia: General Endotracheal-GETA Comments: pt transferred to [facility] for pacer placement due to severe bradycardia.
== END 2024-03-21 17:39 | disposition other institution (70) | DRG 470 ==
LOC: HO.SSS 13:49 → HO.IMC 15:20
PROVIDERS: Nurse Practitioner; Orthopaedic Surgery; Admitting Provider Physician Assistant; PCP Nurse Practitioner Adult Health; Visit Provider Physician Assistant
PROC: 0SR903A Replacement of Right Hip Joint with Ceramic Synthetic Substitute, Uncemented, Open Approach (ICD-10-PCS; CPT 27130; principal; 2024-03-21 07:30)
DX: M16.11 Unilateral primary osteoarthritis, right hip (principal); I35.0 Nonrheumatic aortic (valve) stenosis; R00.1 Bradycardia, unspecified; N18.30 Chronic kidney disease, stage 3 unspecified; G47.33 Obstructive sleep apnea (adult) (pediatric); E11.22 Type 2 diabetes mellitus with diabetic chronic kidney disease; I12.9 Hypertensive chronic kidney disease with stage 1 through stage 4 chronic kidney disease, or unspecified chronic kidney disease; Z85.46 Personal history of malignant neoplasm of prostate; Z92.3 Personal history of irradiation; I48.0 Paroxysmal atrial fibrillation; Z79.01 Long term (current) use of anticoagulants; Z79.84 Long term (current) use of oral hypoglycemic drugs; Z79.899 Other long term (current) drug therapy
CPT/HCPCS: 27130; 36415; 72170; 82947; 85610; 86850; 86900; 86901; 87640; 87641; 88304; 88311; 93005; C1713; C1776; J0131; J0690; J1170; J2405; J2795; J3010

== ENCOUNTER 2024-03-23 17:24 | Inpatient (IN) | payer MEDICARE, SELFPAY ==
[2024-03-23 18:09] VITALS: BMI 28.7
[2024-03-23 18:29] LABS: MANUAL DIFF FLAG NO
[2024-03-23 18:38] LABS: Basophils Percent Auto 0.1 % (0-2); Eosinophils Percent Auto 0.4 % (0-4); Hematocrit 31.4 % (42.0-52.0); Imm Gran Abs Auto 0.04 X10*3/uL (0.00-0.03); Imm Gran Pct Auto 0.5 % (0.0-0.4); Lymphocytes Percent Auto 11.9 % (20-40); Mean Corpuscular HGB Conc 31.8 g/dl (31.0-36.0); Mean Corpuscular Hemoglobin 27.5 pg (27.0-33.0); Mean Corpuscular Volume 86.3 fL (80.0-98.0); Mean Platelet Volume 10.8 fL (9.4-12.4); Monocytes Absolute Auto 0.9 X10*3/uL (0.1-1.2); Monocytes Percent Auto 11.7 % (2-11); NRBC Pct Auto 0.2 /100WBC (0.0-0.2); Neutrophils Absolute Auto 6.1 x10*3/uL (2.0-8.3); Neutrophils Percent Auto 75.4 % (45-73); Platelet Count 134 X10*3/uL (160-400); Red Blood Count 3.64 X10*6/uL (4.60-5.80); Red Cell Distribution Width 15.7 % (11.0-16.0)
[2024-03-23] MEDS: 0.9 % Sodium Chloride Flush 3 ML SYRINGE IVFLUSH ×2 (18:38→22:03)
[2024-03-23] MEDS: oxyCODONE HCl Immed Release 5 MG TABLET PO (18:38)
[2024-03-23] MEDS: Lactated Ringers 1,000 ML 100 ML IVCONT (18:39)
[2024-03-23 18:50] LABS: Anion Gap 15 (12-20); Blood Urea Nitrogen 34 mg/dL (9-16); Calcium 9.6 mg/dL (8.4-10.2); Carbon Dioxide 20 mmol/L (22-29); Chloride 108 mmol/L (96-108); Creatinine Clr Calc Pharmacy 55.5; Estimated Glomerular Filt Rate 51; Glucose Fasting 151 mg/dL (60-99); Sodium 139 mmol/L (135-145)
[2024-03-23] MEDS: Morphine Sulfate 4 MG/ML CARTRIDGE IVPUSH ×2 (18:54→23:06)
[2024-03-23 19:00] VITALS: BP 124/58; PULSE 66; RESP 20; TEMP 36.2; O2SAT 95
--- NOTE | 2024-03-23 19:04 | P.CONHOSP_ITS ---
History of Present Illness Data of Consult Service Date: 03/23/24 Primary Care Provider: Unknown Physician HPI Reason for consult: Medical management Patient is a 78-year-old male with a PMH significant for moderate to severe aortic stenosis, paroxysmal AFib with slow ventricular response on Coumadin, nmg-nzxynxq-mguxpjugh type 2 diabetes, SHARAD not on CPAP, CKD 3, and hx of prostate cancer s/p radiation 10/2023 who was originally admitted to the hospital on 03/21/2024 for elective right KAYLA secondary to osteoarthritis. Postoperatively patient was bradycardic in the 30s but asymptomatic and normotensive. Patient with a history of slow ventricular response, but HR had been in the 50s during procedure per anesthesia. Patient follows with [facility] who had cleared him as an acceptable risk for planned hip replacement. Cardiology here was consulted and they recommended transfer to [facility] for possible pacemaker placement. While at [facility] patient was evaluated by electrophysiology who did not recommend pacemaker at this time as patient had been asymptomatic while in sinus bradycardia. Hospital course was complicated by acute episode of hyperkalemia and PRAVEEN on CKD, which was resolved after holding lisinopril. Patient was started on his home dose of warfarin 5 mg daily with 1st dose on 03/22/2024 with INR 1.1 earlier today. Patient had been treated with IV Dilaudid and OxyContin, but both were stopped after patient became confused, agitated, and lethargic. Hip pain has been managed with oxycodone 5 mg p.r.n. and Tylenol 950 q6. Patient was then transferred back to [facility] for readmission. Patient seen and evaluated in his room where he appears uncomfortable and shaking with pain. Patient complains of right hip that radiates to right lower back and RLQ. Patient denies chest pain/pressure or palpitations. No lightheadedness or dizziness. Denies numbness or tingling in extremities. No fever, chills, nausea, or vomiting. Denies shortness or breath or difficulty breathing. Review of Systems 2 Review of Systems: Right hip pain radiating to right lower back and RLQ Denies lightheadedness, dizziness No chest pain/pressure, palpitations Denies numbness or tingling in extremities No fever, chills, nausea, vomiting No Shortness a breath or difficulty breathing [facility] Medical History (Updated 03/23/24 @ 19:54 by MARCO Alexander) Bradycardia Arthritis Sleep apnea Chronic renal insufficiency Aortic stenosis Gout Hyperlipidemia Atrial fibrillation Prostate cancer Diabetes HTN (hypertension) Surgical History Hx of bilateral cataract extraction Hx of cholecystectomy History of lobectomy of thyroid H/O colonoscopy History of total left hip arthroplasty Social History Household Members: Significant Other Housing: House Housing Other:: apartment in a 4 family home Are you a primary healthcare network consultant to a significant other at home: No Do you presently have visiting nurse or other home services: No Patient Tobacco Use Status: Never used Tobacco Use of substances other than those prescribed or required for medical reasons: No Have you been hit, kicked, punched, or otherwise hurt by someone within the past year? If so, by whom?: No Do you feel safe in your current relationship?: Yes Is there a partner from a previous relationship who is making you feel unsafe now?: No Are you made to feel afraid or neglected: No Advance Directives: No Advance Directives Information Provided: No Do you have a plan to hurt others: No Plan Recently lost weight without trying: No Poor oral hygiene: Yes Meds Allergies Allergy/AdvReac Type Severity Reaction Status Date / Time No Known Allergies Allergy Verified 03/21/24 07:09 Active Medications: Current Medications Lactated Ringer's (Lr) 1,000 mls @ 100 mls/hr IVCONT .Q10H [facility] Last Admin: 03/23/24 18:39 Dose: 100 mls/hr Morphine Sulfate (Morphine Sulfate 4 Mg/Ml Cartridge) 4 mg IVPUSH Q4H PRN; Protocol PRN Reason: Pain, Severe (Pain Scale 7-10) Last Admin: 03/23/24 18:54 Dose: 4 mg Ondansetron HCl (Ondansetron Hcl 4 Mg/2 Ml Vial) 4 mg IVPUSH Q8H PRN PRN Reason: Nausea and Vomiting Oxycodone HCl (Oxycodone Hcl Immed Release 5 Mg Tablet) 10 mg PO Q4H PRN PRN Reason: Pain, Moderate(Pain Scale 4-6) Senna (Sennosides 8.6 Mg Tablet) 17.2 mg PO BEDTIME [facility] Sodium Chloride (0.9 % Sodium Chloride Flush 3 Ml Syringe) 3 ml IVFLUSH QSHIFT [facility] Last Admin: 03/23/24 18:38 Dose: 3 ml Home Medications ?Medication ?Instructions ?Recorded ?Confirmed ?Last Taken ?Type allopurinol 100 mg tablet 100 mg PO QPM 02/17/24 03/17/24 Unknown History atorvastatin 10 mg tablet 10 mg PO QPM 02/17/24 03/17/24 Unknown History glipizide 2.5 mg tablet 2.5 mg PO QPM 02/17/24 03/17/24 Unknown History warfarin 5 mg tablet 5 mg PO QAM 02/17/24 03/17/24 03/16/24 History dorzolamide 2 % eye drops 1 drp ophthalmic (eye) BID 03/10/24 03/17/24 Unknown History latanoprost 0.005 % eye drops 1 drp ophthalmic (eye) BEDTIME 03/10/24 03/17/24 Unknown History lisinopril 10 mg tablet 10 mg PO QAM 03/10/24 03/17/24 Unknown History multivitamin 1 tab PO QAM 03/13/24 03/17/24 Unknown History atorvastatin 20 mg tablet 20 mg PO DAILY 03/21/24 03/21/24 Unknown History Physical Exam 2 Vital Signs and Narrative: Vital Signs: BMI result Body Mass Index 28.7 General: AOx3, looks uncomfortable and in pain. In no acute distress Resp: CTA bilaterally CVS: S1, S2, regular rhythm and rate, 2/6 systolic heart murmur heard at right sternal border GI: +BS, NT, no distention Skin: Warm, dry Neuro: Cranial nerves II-XII grossly intact bilaterally. Motor grossly intact bilaterally. Sensation to light touch Extremities: No edema Musculoskeletal: Right hip tender to palpation. Clean dressing in place. Psych: Appropriate affect Results Labs 03/23/24 18:25 03/23/24 18:25 Labs: Laboratory Results - last 24 hr 03/23/24 18:25 MCV 86.3 MCH 27.5 MCHC 31.8 RDW 15.7 Plt Count 134 L MPV 10.8 Immature Gran % (Auto) 0.5 H Neut % (Auto) 75.4 H Lymph % (Auto) 11.9 L Grayson % (Auto) 11.7 H Eos % (Auto) 0.4 Baso % (Auto) 0.1 Lymph # (Auto) 1.0 L Grayson # (Auto) 0.9 Eos # (Auto) 0.0 Baso # (Auto) 0.0 Abs Immat Gran (auto) 0.04 H Absolute Neuts (auto) 6.1 Absolute Nucleated RBC 0.020 H Nucleated RBC % (auto) 0.2 Anion Gap 15 Estim Creat Clear Calc 55.5 Estimated GFR 51 Fasting Glucose 151 H Calcium 9.6 Assessment and Plan (1) Bradycardia: Status: Acute (2) Arthritis of right hip: Status: Acute Plan Patient is a 78-year-old male with a PMH significant for moderate to severe aortic stenosis, paroxysmal AFib with slow ventricular response on Coumadin, qae-caudphy-fobrcjduo type 2 diabetes, SHARAD not on CPAP, CKD 3, and hx of prostate cancer s/p radiation 10/2023 who was originally admitted to the hospital on 03/21/2024 for elective right KAYLA secondary to osteoarthritis. Patient was transferred to [facility] postoperative bradycardia evaluation. Did not receive PPM at [facility] and was transferred back to [facility]. Hospitalist consult for medical management. Right KAYLA Plan as per Orthopedics Metabolic encephalopathy Patient with confusion, agitation, and lethargy at [facility], attributed to Dilaudid IV Will treat with morphine 4 mg IV Q4 for now Acetaminophen 975 mg p.o. q.6 marjan Paroxysmal AFib Coumadin restarted yesterday, INR subtherapeutic at 1.1 today Continue Coumadin Will bridge with therapeutic Lovenox at 100 mg x1 dose now Check INR in the morning and continue Lovenox bridge as necessary Follow INR daily Bradycardia Patient with postoperative bradycardia in the 30s Patient asymptomatic: Denies lightheadedness, dizziness, presyncope Was evaluated by electrophysiology at [facility] who did not feel a PPM was necessary at this time Patient not on beta-blockers Monitor on telemetry CKD 3 Pt with PRAVEEN on CKD at [facility] Creatinine currently at baseline at 1.36 HTN BP slightly soft at 124/58 Hold lisinopril for now, resume as warranted HLD Continue statin Hx of gout Continue allopurinol Zhi-ykumasu-itzrjgrnz type 2 diabetes Diabetic diet Sliding scale insulin Continue glipizide Thank you for allowing us to participate in the care of this patient. We will continue with you.
[2024-03-23 20:30] LABS: Glucose, Whole Blood 149 mg/dL (60-115)
[2024-03-23 20:53] LABS: INTERNATIONAL NORM RATIO 1.3 (0.9-1.1); Prothrombin Time 16.1 SEC (11.1-13.3)
--- NOTE | 2024-03-23 21:29 | PM.EVENT ---
Event Note Date of Service: 03/23/24 Event Note: Mr Portillo is s/p RT KAYLA 03/21/[address] Ramirez Patient was transferred back to [facility] on the Orthopedic service for continued orthopedic care Time Spent With Patient Time: Total time managing care of this patient today ____ minutes.
[2024-03-23] MEDS: Sennosides 8.6 MG TABLET 17.2 MG PO (22:00)
[2024-03-23] MEDS: Acetaminophen 325 MG TABLET 975 MG PO (22:01)
[2024-03-23] MEDS: Enoxaparin Sodium 100 MG/ML SYRINGE SUBCUT (22:01)
[2024-03-23] MEDS: Warfarin Sodium 5 MG TABLET PO (22:02)
[2024-03-24] VITALS (10 sets, daily range): BP systolic 125–179; BP diastolic 58–80; PULSE 55–78; RESP 18–20; TEMP 36.2–36.7; O2SAT 91–98
[2024-03-24] MEDS: Morphine Sulfate 4 MG/ML CARTRIDGE IVPUSH (03:55)
[2024-03-24] MEDS: Acetaminophen 325 MG TABLET 975 MG PO ×3 (03:56→21:01)
[2024-03-24] MEDS: Lactated Ringers 1,000 ML 100 ML IVCONT (04:44)
[2024-03-24 06:37] LABS: Hematocrit 27.8 % (42.0-52.0); Hemoglobin 8.8 g/dl (14.0-18.0); Mean Corpuscular HGB Conc 31.7 g/dl (31.0-36.0); Mean Corpuscular Hemoglobin 27.2 pg (27.0-33.0); Mean Corpuscular Volume 86.1 fL (80.0-98.0); Mean Platelet Volume 10.2 fL (9.4-12.4); Platelet Count 105 X10*3/uL (160-400); Red Blood Count 3.23 X10*6/uL (4.60-5.80); Red Cell Distribution Width 15.8 % (11.0-16.0); White Blood Count 5.3 X10*3/uL (4.8-10.8)
[2024-03-24 06:56] LABS: Anion Gap 14 (12-20); Blood Urea Nitrogen 32 mg/dL (9-16); Carbon Dioxide 21 mmol/L (22-29); Chloride 110 mmol/L (96-108); Creatinine Clr Calc Pharmacy 64.5; Estimated Glomerular Filt Rate > 60; Glucose Random 162 mg/dL (60-115); Potassium 4.7 mmol/L (3.3-5.1); Sodium 140 mmol/L (135-145)
[2024-03-24 06:57] LABS: INTERNATIONAL NORM RATIO 1.4 (0.9-1.1); Prothrombin Time 17.2 SEC (11.1-13.3)
[2024-03-24 07:11] LABS: Glucose, Whole Blood 142 mg/dL (60-115)
--- NOTE | 2024-03-24 08:04 | PM.PNORT ---
Subjective Subjective Date of Service: 03/24/24 Interval history: Patient is a 78-year-old male who is postop day 3 status post right total hip arthroplasty with Dr. Ramirez. Patient has [place] [facility] [place] cardiac stabilization. Today, the patient reports that he is in pain in his R hip, but it has improved significantly since last night and early this morning. Patient reports that he had been confused last night and early this morning, but this has since resolved. Patient denies any numbness or tingling in the RLE. No other acute complaints or concerns at this time. Physical Exam Vital Signs: Vital Signs: Last Vital Signs Temp 97.2 F 03/24/24 07:00 Pulse 60 03/24/24 07:25 Resp 18 03/24/24 07:00 BP 138/63 03/24/24 07:25 Pulse Ox 98 03/24/24 07:25 O2 Del Method Room Air 03/24/24 07:00 BMI result Body Mass Index 28.7 Extrem: Other: On inspection, Aquacel dressing is no longer in place, with the majority of the incision site being exposed to air at this time. There is significant ecchymosis in the area of the incision site No active discharge or other evidence of infection about the incision site Patient reports tenderness to gentle palpation about the surgery site Compartments soft, nontender Strong pedal pulses Capillary refill brisk Distal sensation intact Procedures Date of Service Date of Service: 03/24/24 Progress Note: A&P Assessment and plan (1) Status post total hip replacement, right: Status: Acute Plan 1. Status post right total hip arthroplasty with Dr. Ramirez DOS 03/21/2024 The patient is educated about the typical recovery course from this surgery Incision site cleaned with ChloraPrep today, all dressing and extra adhesive removed, new Aquacel in place Patient will be working with PT this a.m. for evaluation and assessment of discharge disposition Continue with pain management Patient is on Coumadin for anticoagulation, continue with regimen prescribed by Medicine Time Spent With Patient Time: Total time managing care of this patient today ____ minutes. Quality Stroke Does the patient have a stroke diagnosis?: No VTE Prior VTE?: No VTE Risk Level:: Surgical - very high VTE Device Contraindication: N/A - Device Ordered VTE Drug Contraindication: N/A - Med Ordered
--- NOTE | 2024-03-24 09:30 | MHC.CM.PN ---
IMM 03/24/24, Pt lives in own apt, his girlfriend lives across the [place] in multi family home. Pt is active with [facility]. HCP form to be completed here and added to chart. PT rec STR, pt in agreement, discussed his choices, referrals in. PCP is Dr. Hernandez. DCP: STR via BLS. CM to assist with DC plan.
[2024-03-24 11:20] LABS: Glucose, Whole Blood 154 mg/dL (60-115)
[2024-03-24] MEDS: Insulin Lispro 100 UNIT/ML 3 ML VIAL SUBCUT ×3 (12:01→21:02)
--- NOTE | 2024-03-24 14:44 | P.PNIM_ITS ---
Subjective Subjective Date of Service: 03/24/24 Interval History: Being followed for atrial fibrillation with bradycardia. Complaining of right hip pain, denies chest pain, no palpitations, no lightheadedness, no dizziness, tolerating diet, offers no other acute complaints. Review of Systems All other system reviewed and are negative. Physical Exam 2 Vital Signs: Vital Signs: Last Vital Signs Temp 97.2 F 03/24/24 11:00 Pulse 57 03/24/24 13:39 Resp 20 03/24/24 11:00 BP 179/69 H 03/24/24 11:00 Pulse Ox 91 L 03/24/24 13:39 O2 Del Method Room Air 03/24/24 11:00 BMI result Body Mass Index 28.7 Const: Other: General awake alert x3,in no acute distress. Anicteric sclera Neck no JVD. CVS irregular rate rhythm, Respiratory lungs clear to auscultation, no respiratory distress, no wheeze, no rhonchi. Gastrointestinal abdomen soft, non tender, bowel sounds audible Extremities no edema. Right hip dressing in place Neuro non focal Skin no rash Appropriate affect Objective Data Active Medications Acetaminophen (Acetaminophen 325 Mg Tablet) 975 mg PO Q6H [facility] Last Admin: 03/24/24 03:56 Dose: 975 mg Documented By: JOI Glucose (Glucose Gel 15 Gm Gel..Gram.) 15 gm PO Q15M PRN; Protocol PRN Reason: per Hypoglycemia Standing Ord. Dextrose (D10) 250 mls @ 750 mls/hr IV Q15M PRN; Protocol PRN Reason: per Hypoglycemia Standing Ord. Insulin Human Lispro (Insulin Lispro 100 Unit/Ml 3 Ml Vial) 0 unit SUBCUT QIDACHS [facility]; Protocol Last Admin: 03/24/24 12:01 Dose: 2 unit Documented By: DOBROMihir Morphine Sulfate (Morphine Sulfate 4 Mg/Ml Cartridge) 4 mg IVPUSH Q4H PRN; Protocol PRN Reason: Pain, Severe (Pain Scale 7-10) Last Admin: 03/24/24 03:55 Dose: 4 mg Documented By: JOI Ondansetron HCl (Ondansetron Hcl 4 Mg/2 Ml Vial) 4 mg IVPUSH Q8H PRN PRN Reason: Nausea and Vomiting Oxycodone HCl (Oxycodone Hcl Immed Release 5 Mg Tablet) 10 mg PO Q4H PRN PRN Reason: Pain, Moderate(Pain Scale 4-6) Senna (Sennosides 8.6 Mg Tablet) 17.2 mg PO BEDTIME [facility] Last Admin: 03/23/24 22:00 Dose: 17.2 mg Documented By: JOI Sodium Chloride (0.9 % Sodium Chloride Flush 3 Ml Syringe) 3 ml IVFLUSH QSHIFT [facility] Last Admin: 03/24/24 08:04 Dose: Not Given Documented By: LUCERO Non-Admin Reason: IV Running Warfarin Sodium (Warfarin Sodium 5 Mg Tablet) 5 mg PO DAILY@1800 [facility] Last Admin: 03/23/24 22:02 Dose: 5 mg Documented By: JOI Labs 03/24/24 06:21 03/24/24 06:22 Labs: Laboratory Results - last 24 hr 03/23/24 03/23/24 03/23/24 18:25 20:25 20:26 MCV 86.3 MCH 27.5 MCHC 31.8 RDW 15.7 Plt Count 134 L MPV 10.8 Immature Gran % (Auto) 0.5 H Neut % (Auto) 75.4 H Lymph % (Auto) 11.9 L Canadian % (Auto) 11.7 H Eos % (Auto) 0.4 Baso % (Auto) 0.1 Lymph # (Auto) 1.0 L Canadian # (Auto) 0.9 Eos # (Auto) 0.0 Baso # (Auto) 0.0 Abs Immat Gran (auto) 0.04 H Absolute Neuts (auto) 6.1 Absolute Nucleated RBC 0.020 H Nucleated RBC % (auto) 0.2 PT 16.1 H INR 1.3 H Anion Gap 15 Estim Creat Clear Calc 55.5 Estimated GFR 51 POC Glucose 149 H Random Glucose Fasting Glucose 151 H Calcium 9.6 03/24/24 03/24/24 03/24/24 06:21 06:22 06:57 MCV 86.1 MCH 27.2 MCHC 31.7 RDW 15.8 Plt Count 105 L MPV 10.2 Immature Gran % (Auto) Neut % (Auto) Lymph % (Auto) Canadian % (Auto) Eos % (Auto) Baso % (Auto) Lymph # (Auto) Canadian # (Auto) Eos # (Auto) Baso # (Auto) Abs Immat Gran (auto) Absolute Neuts (auto) Absolute Nucleated RBC 0.000 Nucleated RBC % (auto) 0.0 PT 17.2 H INR 1.4 H Anion Gap 14 Estim Creat Clear Calc 64.5 Estimated GFR > 60 POC Glucose 142 H Random Glucose 162 H Fasting Glucose Calcium 9.0 D 03/24/24 11:02 MCV MCH MCHC RDW Plt Count MPV Immature Gran % (Auto) Neut % (Auto) Lymph % (Auto) Canadian % (Auto) Eos % (Auto) Baso % (Auto) Lymph # (Auto) Canadian # (Auto) Eos # (Auto) Baso # (Auto) Abs Immat Gran (auto) Absolute Neuts (auto) Absolute Nucleated RBC Nucleated RBC % (auto) PT INR Anion Gap Estim Creat Clear Calc Estimated GFR POC Glucose 154 H Random Glucose Fasting Glucose Calcium Assessment and Plan (1) Status post total hip replacement, right: Status: Acute (2) Bradycardia: Status: Acute (3) Nonrheumatic aortic (valve) stenosis: Status: Acute (4) Atrial fibrillation with slow ventricular response: Status: Acute Plan 78-year-old male with a PMH significant for moderate to severe aortic stenosis, paroxysmal AFib with slow ventricular response on Coumadin, [id number]-[id number] type 2 diabetes, SHARAD not on CPAP, CKD 3, and hx of prostate cancer s/p radiation 10/2023 who was originally admitted to the hospital on 03/21/2024 for elective right KAYLA secondary to osteoarthritis. Patient was [place] [facility] [place]. Did not receive PPM at [facility] [place] and was [place] [facility] [place] Hospitalist consult for medical management. Right KAYLA Persistent right hip pain Continue scheduled Tylenol , as needed oxycodone and morphine PT and disposition as per ortho Metabolic encephalopathy Resolved patient awake alert this morning , attributed to Dilaudid IV at [facility] Monitor closely Paroxysmal AFib Coumadin restarted yesterday, INR subtherapeutic at 1.4 today Continue Coumadin dose increased to 7.5 mg daily Follow INR daily Bradycardia Patient with postoperative bradycardia in the 30s, now ventricular rate in 60s No lightheadedness, dizziness, presyncope Was evaluated by electrophysiology at [facility] [place] who did not feel a PPM was necessary at this time Patient not on beta-blockers Monitor on telemetry CKD 3 Pt with PRAVEEN on CKD at [facility] [place], creatinine at baseline HTN BP soft at 124/58 on arrival now trending up will resume lisinopril HLD Continue statin Hx of gout no acute flare noted Xdy-xwswlix-hikdnxbso type 2 diabetes Stable blood sugars on Diabetic diet,Sliding scale insulin hold glipizide Thank you for allowing us to participate in the care of this patient. We will continue with you. Quality Stroke Does the patient have a stroke diagnosis?: No VTE Prior VTE?: No VTE Risk Level:: Surgical - very high VTE Device Contraindication: N/A - Device Ordered VTE Drug Contraindication: N/A - Med Ordered
[2024-03-24 15:59] LABS: Glucose, Whole Blood 151 mg/dL (60-115)
[2024-03-24] MEDS: lisinopriL 10 MG TABLET PO (16:19)
--- NOTE | 2024-03-24 17:07 | PHA.MEDREC ---
Addendum entered by Elizabeth James RPh 03/24/24 17:19: reviewed by [facility]. Original Note: Pharmacy Consult ? Medication Reconciliation Pharmacy has completed the medication reconciliation. Spoke to patient to confirm med list. Patient states he is no longer taking Docusate 100 mg bid. Patient also states he is still taking Glipizide 2.5 mg at bedtime, however last fill date was 04-16-23 for 90 days. Warfarin 2.5 mg to 5 mg daily, however patient stopped taking 5 days prior to surgery. Surgery date was 04-21-24
[2024-03-24] MEDS: Warfarin Sodium 7.5 MG TABLET PO (17:18)
[2024-03-24] MEDS: 0.9 % Sodium Chloride Flush 3 ML SYRINGE IVFLUSH (17:18)
[2024-03-24 20:43] LABS: Glucose, Whole Blood 154 mg/dL (60-115)
[2024-03-24] MEDS: Sennosides 8.6 MG TABLET 17.2 MG PO (21:01)
[2024-03-24] MEDS: Latanoprost 0.005 % Ophth Sol 2.5 ML DROPS 1 DROP EYE-BOTH (21:01)
[2024-03-24] MEDS: Dorzolamide HCl 2 % Ophth Sol 10 ML DRPBTL 1 DROP EYE-BOTH (21:01)
[2024-03-25] MEDS: 0.9 % Sodium Chloride Flush 3 ML SYRINGE IVFLUSH ×4 (01:21→21:16)
[2024-03-25 03:36] VITALS: BP 134/62; PULSE 60; RESP 18; TEMP 36.2; O2SAT 95
[2024-03-25 07:41] VITALS: BP 121/64; PULSE 55; RESP 20; TEMP 36.1; O2SAT 98
[2024-03-25 07:51] LABS: Anion Gap 13 (12-20); Blood Urea Nitrogen 29 mg/dL (9-16); Carbon Dioxide 19 mmol/L (22-29); Chloride 112 mmol/L (96-108); Creatinine Clr Calc Pharmacy 79.4; Estimated Glomerular Filt Rate > 60; Glucose Random 151 mg/dL (60-115); Sodium 140 mmol/L (135-145)
[2024-03-25 08:01] LABS: Glucose, Whole Blood 153 mg/dL (60-115)
[2024-03-25] MEDS: Insulin Lispro 100 UNIT/ML 3 ML VIAL SUBCUT ×3 (08:25→21:10)
[2024-03-25] MEDS: Multivitamin TABLET 1 TAB PO (08:26)
[2024-03-25] MEDS: Acetaminophen 325 MG TABLET 975 MG PO ×2 (08:26→21:09)
[2024-03-25] MEDS: lisinopriL 10 MG TABLET PO (08:26)
[2024-03-25] MEDS: Docusate Sodium 100 MG CAPSULE 200 MG PO (08:26)
[2024-03-25] MEDS: Atorvastatin Calcium 20 MG TABLET PO (08:26)
[2024-03-25] MEDS: Dorzolamide HCl 2 % Ophth Sol 10 ML DRPBTL 1 DROP EYE-BOTH ×2 (08:35→21:14)
[2024-03-25 08:54] LABS: Prothrombin Time 24.2 SEC (11.1-13.3)
--- NOTE | 2024-03-25 10:18 | PM.PNORT ---
Subjective Subjective Date of Service: 03/25/24 Interval history: POD 4 s/p RT KAYLA with Dr Ramirez 03/21/24 Patient is resting in bed, states pain is tolerable when he does not move. He states he has been out of bed into a chair and working with PT He has some episodes of forget fullness when asking about events yesterday but is a/o x3 denies sob , cp, palpitations Physical Exam Vital Signs: Vital Signs: Last Vital Signs Temp 97.0 F 03/25/24 07:41 Pulse 55 03/25/24 07:41 Resp 20 03/25/24 07:41 BP 121/64 03/25/24 07:41 Pulse Ox 98 03/25/24 07:41 O2 Del Method Room Air 03/25/24 07:41 BMI result Body Mass Index 28.7 Extrem: Other: Bandage intact with mild staining There is significant ecchymosis in the area of the incision site No active discharge or other evidence of infection about the incision site Patient reports tenderness to gentle palpation about the surgery site Compartments soft, nontender Strong pedal pulses Capillary refill brisk Distal sensation intact Procedures Date of Service Date of Service: 03/25/24 Progress Note: A&P Assessment and plan (1) Status post total hip replacement, right: Status: Acute Assessment and Plan: Pain mgnmnt-caution with opiates due to confusion PT/OT for wbat posterior precautions patient should be out of bed for each meal Compression boots should be on Continue coumadin, INR therapeutic today at 2 dispo-STR pending auth Time Spent With Patient Time: Total time managing care of this patient today ____ minutes. Quality Stroke Does the patient have a stroke diagnosis?: No VTE Prior VTE?: No VTE Risk Level:: Surgical - very high VTE Device Contraindication: N/A - Device Ordered VTE Drug Contraindication: N/A - Med Ordered
[2024-03-25] MEDS: oxyCODONE HCl Immed Release 5 MG TABLET 10 MG PO (10:26)
[2024-03-25 10:36] LABS: MANUAL DIFF FLAG NO
[2024-03-25 10:39] LABS: Basophils Percent Auto 0.2 % (0-2); Eosinophils Absolute Auto 0.1 X10*3/uL (0.0-0.4); Eosinophils Percent Auto 2.6 % (0-4); Hematocrit 28.4 % (42.0-52.0); Hemoglobin 9.4 g/dl (14.0-18.0); Imm Gran Abs Auto 0.02 X10*3/uL (0.00-0.03); Imm Gran Pct Auto 0.4 % (0.0-0.4); Lymphocytes Absolute Auto 0.6 X10*3/uL (1.2-4.9); Lymphocytes Percent Auto 10.2 % (20-40); Mean Corpuscular HGB Conc 33.1 g/dl (31.0-36.0); Mean Corpuscular Hemoglobin 27.7 pg (27.0-33.0); Mean Corpuscular Volume 83.8 fL (80.0-98.0); Mean Platelet Volume 10.6 fL (9.4-12.4); Monocytes Absolute Auto 0.4 X10*3/uL (0.1-1.2); Monocytes Percent Auto 6.6 % (2-11); NRBC Pct Auto 0.4 /100WBC (0.0-0.2); Neutrophils Absolute Auto 4.4 x10*3/uL (2.0-8.3); Platelet Count 144 X10*3/uL (160-400); Red Blood Count 3.39 X10*6/uL (4.60-5.80); Red Cell Distribution Width 15.8 % (11.0-16.0); White Blood Count 5.5 X10*3/uL (4.8-10.8)
[2024-03-25 10:59] VITALS: BP 129/62; PULSE 57; RESP 20; TEMP 36.4; O2SAT 96
--- NOTE | 2024-03-25 11:16 | P.PNIM_ITS ---
Subjective Subjective Date of Service: 03/25/24 Interval History: Being followed for bradycardia/status post right KAYLA on 03/21/24 Offers no acute complaints, pain is tolerable at rest, worse with activity, denies fever, no chills, no nausea, no vomiting, no chest pain, palpitations, no lightheadedness or dizziness, answering questions appropriately, forgetful. Review of Systems All other system reviewed and are negative. Physical Exam 2 Vital Signs: Vital Signs: Last Vital Signs Temp 97.5 F 03/25/24 10:59 Pulse 57 03/25/24 10:59 Resp 20 03/25/24 10:59 BP 129/62 03/25/24 10:59 Pulse Ox 96 03/25/24 10:59 O2 Del Method Room Air 03/25/24 10:59 BMI result Body Mass Index 28.7 Const: Other: General awake alert x3,in no acute distress. Anicteric sclera Neck no JVD. CVS irregular rate rhythm, Respiratory lungs clear to auscultation, no respiratory distress, no wheeze, no rhonchi. Gastrointestinal abdomen soft, non tender, bowel sounds audible Extremities no edema. Right hip dressing in place Neuro non focal Skin no rash Appropriate affect Objective Data Active Medications Acetaminophen (Acetaminophen 325 Mg Tablet) 975 mg PO Q6H [facility] Last Admin: 03/25/24 08:26 Dose: 975 mg Documented By: LUCERO Allopurinol (Allopurinol 100 Mg Tablet) 100 mg PO BEDTIME [facility] Atorvastatin Calcium (Atorvastatin Calcium 20 Mg Tablet) 20 mg PO DAILY [facility] Last Admin: 03/25/24 08:26 Dose: 20 mg Documented By: LUCERO Docusate Sodium (Docusate Sodium 100 Mg Capsule) 200 mg PO DAILY [facility] Last Admin: 03/25/24 08:26 Dose: 200 mg Documented By: LUCERO Dorzolamide HCl (Dorzolamide Hcl 2 % Ophth Sapphire 10 Ml Drpbtl) 1 drop EYE-BOTH BID [facility] Last Admin: 03/25/24 08:35 Dose: 1 drop Documented By: LUCERO Glucose (Glucose Gel 15 Gm Gel..Gram.) 15 gm PO Q15M PRN; Protocol PRN Reason: per Hypoglycemia Standing Ord. Dextrose (D10) 250 mls @ 750 mls/hr IV Q15M PRN; Protocol PRN Reason: per Hypoglycemia Standing Ord. Insulin Human Lispro (Insulin Lispro 100 Unit/Ml 3 Ml Vial) 0 unit SUBCUT QIDACHS [facility]; Protocol Last Admin: 03/25/24 08:25 Dose: 2 unit Documented By: LUCERO Latanoprost (Latanoprost 0.005 % Ophth Sapphire 2.5 Ml Drops) 1 drop EYE-BOTH BEDTIME [facility] Last Admin: 03/24/24 21:01 Dose: 1 drop Documented By: GRANT Lisinopril (Lisinopril 10 Mg Tablet) 10 mg PO DAILY [facility]; Protocol Last Admin: 03/25/24 08:26 Dose: 10 mg Documented By: ULCERO Morphine Sulfate (Morphine Sulfate 4 Mg/Ml Cartridge) 4 mg IVPUSH Q4H PRN; Protocol PRN Reason: Pain, Severe (Pain Scale 7-10) Last Admin: 03/24/24 03:55 Dose: 4 mg Documented By: JOI Multivitamins/Vitamin C (Multivitamin Tablet) 1 tab PO DAILY [facility] Last Admin: 03/25/24 08:26 Dose: 1 tab Documented By: LUCERO Ondansetron HCl (Ondansetron Hcl 4 Mg/2 Ml Vial) 4 mg IVPUSH Q8H PRN PRN Reason: Nausea and Vomiting Oxycodone HCl (Oxycodone Hcl Immed Release 5 Mg Tablet) 10 mg PO Q4H PRN PRN Reason: Pain, Moderate(Pain Scale 4-6) Last Admin: 03/25/24 10:26 Dose: 10 mg Documented By: LUCERO Senna (Sennosides 8.6 Mg Tablet) 17.2 mg PO BEDTIME [facility] Last Admin: 03/24/24 21:01 Dose: 17.2 mg Documented By: GRANT Sodium Chloride (0.9 % Sodium Chloride Flush 3 Ml Syringe) 3 ml IVFLUSH QSHIFT [facility] Last Admin: 03/25/24 08:26 Dose: 3 ml Documented By: LUCERO Warfarin Sodium (Warfarin Sodium 7.5 Mg Tablet) 7.5 mg PO DAILY@1800 [facility] Last Admin: 03/24/24 17:18 Dose: 7.5 mg Documented By: LUCERO Labs 03/25/24 10:27 03/25/24 06:00 Labs: Laboratory Results - last 24 hr 03/24/24 03/24/24 03/24/24 11:02 15:31 20:38 MCV MCH MCHC RDW Plt Count MPV Immature Gran % (Auto) Neut % (Auto) Lymph % (Auto) Benson % (Auto) Eos % (Auto) Baso % (Auto) Lymph # (Auto) Benson # (Auto) Eos # (Auto) Baso # (Auto) Abs Immat Gran (auto) Absolute Neuts (auto) Absolute Nucleated RBC Nucleated RBC % (auto) PT INR Anion Gap Estim Creat Clear Calc Estimated GFR POC Glucose 154 H 151 H 154 H Random Glucose Calcium 03/25/24 03/25/24 03/25/24 06:00 07:44 08:07 MCV MCH MCHC RDW Plt Count MPV Immature Gran % (Auto) Neut % (Auto) Lymph % (Auto) Benson % (Auto) Eos % (Auto) Baso % (Auto) Lymph # (Auto) Benson # (Auto) Eos # (Auto) Baso # (Auto) Abs Immat Gran (auto) Absolute Neuts (auto) Absolute Nucleated RBC Nucleated RBC % (auto) PT 24.2 H D INR 2.0 H Anion Gap 13 Estim Creat Clear Calc 79.4 Estimated GFR > 60 POC Glucose 153 H Random Glucose 151 H Calcium 9.0 03/25/24 10:27 MCV 83.8 MCH 27.7 MCHC 33.1 RDW 15.8 Plt Count 144 L D MPV 10.6 Immature Gran % (Auto) 0.4 Neut % (Auto) 80.0 H Lymph % (Auto) 10.2 L Benson % (Auto) 6.6 Eos % (Auto) 2.6 Baso % (Auto) 0.2 Lymph # (Auto) 0.6 L Benson # (Auto) 0.4 Eos # (Auto) 0.1 Baso # (Auto) 0.0 Abs Immat Gran (auto) 0.02 Absolute Neuts (auto) 4.4 Absolute Nucleated RBC 0.020 H Nucleated RBC % (auto) 0.4 H PT INR Anion Gap Estim Creat Clear Calc Estimated GFR POC Glucose Random Glucose Calcium Assessment and Plan (1) Status post total hip replacement, right: Status: Acute (2) Bradycardia: Status: Acute (3) Atrial fibrillation with slow ventricular response: Status: Acute Plan 78-year-old male with a PMH significant for moderate to severe aortic stenosis, paroxysmal AFib with slow ventricular response on Coumadin, vfc-wjokgcw-kqlnqxxxr type 2 diabetes, SHARAD not on CPAP, CKD 3, and hx of prostate cancer s/p radiation 10/2023 who was originally admitted to the hospital on 03/21/2024 for elective right KAYLA secondary to osteoarthritis. Patient was [place] [facility] [place]. Did not receive PPM at [facility] [place] and [place] [facility] [place] consult for medical management. Right KAYLA pod #4 Good pain control Continue scheduled Tylenol , as needed oxycodone and morphine PT and disposition as per ortho Metabolic encephalopathy Resolved patient awake alert this morning , attributed to Dilaudid IV at [facility] Monitor closely,mild forget fullness likely due to narcotics Paroxysmal AFib INR 2, continue Coumadin, 5 mg today, follow PT INR with INR goal 2-3 Follow INR daily Bradycardia Patient with postoperative bradycardia in the 30s, now ventricular rate in 60s No lightheadedness, dizziness, presyncope Was evaluated by electrophysiology at [facility] who did not feel a PPM was necessary at this time Patient not on beta-blockers Monitor on telemetry CKD 3 Pt with PRAVEEN on CKD at [facility] [place], creatinine at baseline HTN Is stable, continue lisinopril HLD Continue statin Hx of gout no acute flare noted Udy-vjfeitf-qtkwjgjqw type 2 diabetes Stable blood sugars on Diabetic diet,Sliding scale insulin Resume glipizide upon discharge Thank you for allowing us to participate in the care of this patient. Will sign off. Quality Stroke Does the patient have a stroke diagnosis?: No VTE Prior VTE?: No VTE Risk Level:: Surgical - very high VTE Device Contraindication: N/A - Device Ordered VTE Drug Contraindication: N/A - Med Ordered
[2024-03-25 12:02] LABS: Glucose, Whole Blood 188 mg/dL (60-115)
[2024-03-25 14:40] VITALS: BP 108/60; PULSE 70; RESP 16; TEMP 36.3; O2SAT 95
[2024-03-25 16:44] LABS: Glucose, Whole Blood 143 mg/dL (60-115)
[2024-03-25] MEDS: Warfarin Sodium 5 MG TABLET PO (18:03)
[2024-03-25 19:12] VITALS: BP 147/63; PULSE 59; RESP 20; TEMP 37.6; O2SAT 98
[2024-03-25 20:02] LABS: Glucose, Whole Blood 186 mg/dL (60-115)
[2024-03-25] MEDS: Sennosides 8.6 MG TABLET 17.2 MG PO (21:09)
[2024-03-25] MEDS: allopurinoL 100 MG TABLET PO (21:10)
[2024-03-25] MEDS: Latanoprost 0.005 % Ophth Sol 2.5 ML DROPS 1 DROP EYE-BOTH (21:15)
[2024-03-25 23:09] VITALS: BP 122/56; PULSE 57; RESP 20; TEMP 37.6; O2SAT 94
[2024-03-26 03:09] VITALS: BP 123/59; PULSE 61; RESP 20; TEMP 36.8; O2SAT 96
[2024-03-26] MEDS: Acetaminophen 325 MG TABLET 975 MG PO ×3 (04:06→20:11)
[2024-03-26 07:12] LABS: INTERNATIONAL NORM RATIO 3.5 (0.9-1.1); Prothrombin Time 43.2 SEC (11.1-13.3)
[2024-03-26 07:53] VITALS: BP 137/67; PULSE 50; RESP 20; TEMP 36.1; O2SAT 94
[2024-03-26 08:08] LABS: Glucose, Whole Blood 146 mg/dL (60-115)
[2024-03-26 08:56] VITALS: BP 137/67
[2024-03-26] MEDS: lisinopriL 10 MG TABLET PO (08:56)
[2024-03-26] MEDS: 0.9 % Sodium Chloride Flush 3 ML SYRINGE IVFLUSH ×3 (08:56→21:24)
[2024-03-26] MEDS: Multivitamin TABLET 1 TAB PO (08:56)
[2024-03-26] MEDS: Atorvastatin Calcium 20 MG TABLET PO (08:56)
[2024-03-26] MEDS: Docusate Sodium 100 MG CAPSULE 200 MG PO (08:56)
[2024-03-26] MEDS: Dorzolamide HCl 2 % Ophth Sol 10 ML DRPBTL 1 DROP EYE-BOTH ×2 (08:59→21:22)
[2024-03-26] MEDS: oxyCODONE HCl Immed Release 5 MG TABLET 10 MG PO (11:19)
[2024-03-26 11:43] VITALS: BP 120/58; PULSE 60; RESP 20; TEMP 37.2; O2SAT 96
[2024-03-26 12:10] LABS: Glucose, Whole Blood 181 mg/dL (60-115)
--- NOTE | 2024-03-26 12:14 | PM.PNORT ---
Subjective Subjective Date of Service: 03/26/24 Interval history: POD 5 s/p RT KAYLA with Dr Ramirez 03/21/24 Patient is resting in bed, states pain is tolerable when he does not move. He states he has been out of bed into a chair and working with PT denies sob , cp, palpitations Physical Exam Vital Signs: Vital Signs: Last Vital Signs Temp 98.9 F 03/26/24 11:43 Pulse 60 03/26/24 11:43 Resp 20 03/26/24 11:43 BP 120/58 L 03/26/24 11:43 Pulse Ox 96 03/26/24 11:43 O2 Del Method Room Air 03/26/24 11:43 BMI result Body Mass Index 28.7 Const: General: cooperative and no acute distress Orientation/consciousness: patient oriented x3 Resp: Effort & Inspection: normal respiratory effort and able to speak in complete sentences Cardio: Peripheral pulses: Peripheral pulses 2+ throughout Neuro: General: patient oriented x3 Extrem: Other: Bandage intact with mild staining There is significant ecchymosis in the area of the incision site No active discharge or other evidence of infection about the incision site Patient reports tenderness to gentle palpation about the surgery site Compartments soft, nontender Strong pedal pulses Capillary refill brisk Distal sensation intact Procedures Date of Service Date of Service: 03/26/24 Progress Note: A&P Assessment and plan (1) Status post total hip replacement, right: Status: Acute Assessment and Plan: Pain mgnmnt-caution with opiates due to confusion PT/OT for wbat posterior precautions patient should be out of bed for each meal Compression boots should be on Continue coumadin, INR 3.5 today-spoke with Dr Robison today-Coumadin being held today and will redraw INR tomorrow am and resume if within normal range dispo-STR pending auth Time Spent With Patient Time: Total time managing care of this patient today ____ minutes. Quality Stroke Does the patient have a stroke diagnosis?: No VTE Prior VTE?: No VTE Risk Level:: Surgical - very high VTE Device Contraindication: N/A - Device Ordered VTE Drug Contraindication: N/A - Med Ordered
[2024-03-26] MEDS: Insulin Lispro 100 UNIT/ML 3 ML VIAL SUBCUT ×2 (12:20→21:21)
[2024-03-26 12:57] LABS: MANUAL DIFF FLAG NO
[2024-03-26 13:01] LABS: Basophils Percent Auto 0.2 % (0-2); Eosinophils Absolute Auto 0.2 X10*3/uL (0.0-0.4); Eosinophils Percent Auto 3.9 % (0-4); Hematocrit 28.7 % (42.0-52.0); Hemoglobin 9.2 g/dl (14.0-18.0); Imm Gran Abs Auto 0.01 X10*3/uL (0.00-0.03); Imm Gran Pct Auto 0.2 % (0.0-0.4); Lymphocytes Absolute Auto 0.6 X10*3/uL (1.2-4.9); Lymphocytes Percent Auto 11.6 % (20-40); Mean Corpuscular HGB Conc 32.1 g/dl (31.0-36.0); Mean Corpuscular Hemoglobin 26.9 pg (27.0-33.0); Mean Corpuscular Volume 83.9 fL (80.0-98.0); Mean Platelet Volume 10.2 fL (9.4-12.4); Monocytes Absolute Auto 0.4 X10*3/uL (0.1-1.2); Monocytes Percent Auto 8.4 % (2-11); NRBC Pct Auto 0.4 /100WBC (0.0-0.2); Neutrophils Absolute Auto 3.7 x10*3/uL (2.0-8.3); Neutrophils Percent Auto 75.7 % (45-73); Platelet Count 155 X10*3/uL (160-400); Red Blood Count 3.42 X10*6/uL (4.60-5.80); Red Cell Distribution Width 15.6 % (11.0-16.0); White Blood Count 4.9 X10*3/uL (4.8-10.8)
--- NOTE | 2024-03-26 14:07 | P.PNIM_ITS ---
Subjective Subjective Date of Service: 03/26/24 Interval History: Being followed for bradycardia/status post right KAYLA on 03/21/24 Complaining of hip pain with activity, denies confusion, tolerating diet denies nausea vomiting, no abdominal pain, no chest pain, no palpitation, no lightheadedness or dizziness. Review of Systems All other system reviewed and are negative. Physical Exam 2 Vital Signs: Vital Signs: Last Vital Signs Temp 98.9 F 03/26/24 11:43 Pulse 60 03/26/24 11:43 Resp 20 03/26/24 11:43 BP 120/58 L 03/26/24 11:43 Pulse Ox 96 03/26/24 11:43 O2 Del Method Room Air 03/26/24 11:43 BMI result Body Mass Index 28.7 Const: Other: General awake alert x3,in no acute distress. Anicteric sclera Neck no JVD. CVS irregular rate rhythm, Respiratory lungs clear to auscultation, no respiratory distress, no wheeze, no rhonchi. Gastrointestinal abdomen soft, non tender, bowel sounds audible Extremities no edema. Right hip dressing in place Neuro non focal Skin no rash Appropriate affect Objective Data Active Medications Acetaminophen (Acetaminophen 325 Mg Tablet) 975 mg PO Q6H [facility] Last Admin: 03/26/24 13:41 Dose: 975 mg Documented By: WILIAMMORP Allopurinol (Allopurinol 100 Mg Tablet) 100 mg PO BEDTIME [facility] Last Admin: 03/25/24 21:10 Dose: 100 mg Documented By: MARISSACL Atorvastatin Calcium (Atorvastatin Calcium 20 Mg Tablet) 20 mg PO DAILY [facility] Last Admin: 03/26/24 08:56 Dose: 20 mg Documented By: WILIAMMORP Docusate Sodium (Docusate Sodium 100 Mg Capsule) 200 mg PO DAILY [facility] Last Admin: 03/26/24 08:56 Dose: 200 mg Documented By: WILIAMMORP Dorzolamide HCl (Dorzolamide Hcl 2 % Ophth Sapphire 10 Ml Drpbtl) 1 drop EYE-BOTH BID [facility] Last Admin: 03/26/24 08:59 Dose: 1 drop Documented By: WILIAMMORP Glucose (Glucose Gel 15 Gm Gel..Gram.) 15 gm PO Q15M PRN; Protocol PRN Reason: per Hypoglycemia Standing Ord. Dextrose (D10) 250 mls @ 750 mls/hr IV Q15M PRN; Protocol PRN Reason: per Hypoglycemia Standing Ord. Insulin Human Lispro (Insulin Lispro 100 Unit/Ml 3 Ml Vial) 0 unit SUBCUT QIDACHS [facility]; Protocol Last Admin: 03/26/24 12:20 Dose: 2 unit Documented By: MORENITA Latanoprost (Latanoprost 0.005 % Ophth Sapphire 2.5 Ml Drops) 1 drop EYE-BOTH BEDTIME [facility] Last Admin: 03/25/24 21:15 Dose: 1 drop Documented By: SCAR Lisinopril (Lisinopril 10 Mg Tablet) 10 mg PO DAILY [facility]; Protocol Last Admin: 03/26/24 08:56 Dose: 10 mg Documented By: MORENITA Morphine Sulfate (Morphine Sulfate 4 Mg/Ml Cartridge) 4 mg IVPUSH Q4H PRN; Protocol PRN Reason: Pain, Severe (Pain Scale 7-10) Last Admin: 03/24/24 03:55 Dose: 4 mg Documented By: JOI Multivitamins/Vitamin C (Multivitamin Tablet) 1 tab PO DAILY [facility] Last Admin: 03/26/24 08:56 Dose: 1 tab Documented By: MORENITA Ondansetron HCl (Ondansetron Hcl 4 Mg/2 Ml Vial) 4 mg IVPUSH Q8H PRN PRN Reason: Nausea and Vomiting Oxycodone HCl (Oxycodone Hcl Immed Release 5 Mg Tablet) 10 mg PO Q4H PRN PRN Reason: Pain, Moderate(Pain Scale 4-6) Last Admin: 03/26/24 11:19 Dose: 10 mg Documented By: MORENITA Senna (Sennosides 8.6 Mg Tablet) 17.2 mg PO BEDTIME [facility] Last Admin: 03/25/24 21:09 Dose: 17.2 mg Documented By: SCAR Sodium Chloride (0.9 % Sodium Chloride Flush 3 Ml Syringe) 3 ml IVFLUSH QSHIFT [facility] Last Admin: 03/26/24 08:56 Dose: 3 ml Documented By: NILAMRP Warfarin Sodium (Warfarin Sodium 5 Mg Tablet) 5 mg PO DAILY@1800 [facility] Last Admin: 03/25/24 18:03 Dose: 5 mg Documented By: DOBROB Labs 03/26/24 12:47 03/25/24 06:00 Labs: Laboratory Results - last 24 hr 03/25/24 03/25/24 03/26/24 16:37 19:50 06:22 MCV MCH MCHC RDW Plt Count MPV Immature Gran % (Auto) Neut % (Auto) Lymph % (Auto) Jennings % (Auto) Eos % (Auto) Baso % (Auto) Lymph # (Auto) Jennings # (Auto) Eos # (Auto) Baso # (Auto) Abs Immat Gran (auto) Absolute Neuts (auto) Absolute Nucleated RBC Nucleated RBC % (auto) PT 43.2 H D INR 3.5 H POC Glucose 143 H 186 H 03/26/24 03/26/24 03/26/24 07:56 11:47 12:47 MCV 83.9 MCH 26.9 L MCHC 32.1 RDW 15.6 Plt Count 155 L MPV 10.2 Immature Gran % (Auto) 0.2 Neut % (Auto) 75.7 H Lymph % (Auto) 11.6 L Jennings % (Auto) 8.4 Eos % (Auto) 3.9 Baso % (Auto) 0.2 Lymph # (Auto) 0.6 L Jennings # (Auto) 0.4 Eos # (Auto) 0.2 Baso # (Auto) 0.0 Abs Immat Gran (auto) 0.01 Absolute Neuts (auto) 3.7 Absolute Nucleated RBC 0.020 H Nucleated RBC % (auto) 0.4 H PT INR POC Glucose 146 H 181 H Assessment and Plan (1) Status post total hip replacement, right: Status: Acute (2) Bradycardia: Status: Acute (3) Atrial fibrillation with slow ventricular response: Status: Acute Plan 78-year-old male with a PMH significant for moderate to severe aortic stenosis, paroxysmal AFib with slow ventricular response on Coumadin, uoh-yvsjvub-acnisoltm type 2 diabetes, SHARAD not on CPAP, CKD 3, and hx of prostate cancer s/p radiation 10/2023 who was originally admitted to the hospital on 03/21/2024 for elective right KAYLA secondary to osteoarthritis. Patient was [place] [facility] [place]ady[place]. Did not receive PPM at [facility] and was transferred back to [facility]. Hospitalist consult for medical management. Right KAYLA pod #5 Good pain control, pain with activity Continue scheduled Tylenol , as needed oxycodone and morphine PT and disposition as per ortho Metabolic encephalopathy Resolved was likely related to narcotics Paroxysmal AFib INR 3.4 will hold Coumadin today recheck PT INR tomorrow morning and resume Coumadin if INR less than 2 with INR goal of 2-3 Bradycardia postoperative bradycardia in the 30s, now ventricular rate in 60s No lightheadedness, dizziness, presyncope Was evaluated by electrophysiology at [facility] who did not feel a PPM was necessary at this time Not on rate lowering medications, will DC tele monitor CKD 3 PRAVEEN on CKD at [facility], creatinine now at baseline HTN stable, continue lisinopril HLD Continue statin Hx of gout no acute flare noted Swu-eagehyb-oxmrtgtuw type 2 diabetes Stable blood sugars on Diabetic diet,Sliding scale insulin Resume glipizide upon discharge Thank you for allowing us to participate in the care of this patient. Will sign off. Quality Stroke Does the patient have a stroke diagnosis?: No VTE Prior VTE?: No VTE Risk Level:: Surgical - very high VTE Device Contraindication: N/A - Device Ordered VTE Drug Contraindication: N/A - Med Ordered
[2024-03-26 15:37] VITALS: BP 126/53; PULSE 61; RESP 20; TEMP 36.1; O2SAT 97
[2024-03-26 16:24] LABS: Glucose, Whole Blood 150 mg/dL (60-115)
[2024-03-26 20:00] VITALS: BP 152/69; PULSE 61; RESP 18; TEMP 36.6; O2SAT 95
[2024-03-26] MEDS: allopurinoL 100 MG TABLET PO (20:11)
[2024-03-26 20:47] LABS: Glucose, Whole Blood 173 mg/dL (60-115)
[2024-03-26] MEDS: Latanoprost 0.005 % Ophth Sol 2.5 ML DROPS 1 DROP EYE-BOTH (21:23)
[2024-03-27] VITALS (7 sets, daily range): BP systolic 131–162; BP diastolic 61–72; PULSE 52–54; RESP 16–20; TEMP 36.2–36.7; O2SAT 95–98
[2024-03-27 06:25] LABS: INTERNATIONAL NORM RATIO 3.3 (0.9-1.1); Prothrombin Time 40.7 SEC (11.1-13.3)
[2024-03-27 07:14] LABS: Glucose, Whole Blood 138 mg/dL (60-115)
--- NOTE | 2024-03-27 07:47 | PM.DS ---
DS: Providers Provider Date of Service: 03/27/24 Date of admission: 03/23/24 17:24 Primary care physician: Unknown Physician Consults: 03/23/24 11:16 Consult to Hospitalist Routine Comment: Consulting Provider: Hospitalist Reason For Exam: Aortic stenosis, bradycardia DS: Diagnosis Discharge Diagnosis (1) Status post total hip replacement, right: Status: Acute (2) Bradycardia: Status: Acute (3) Atrial fibrillation with slow ventricular response: Status: Acute DS: Summary Hospital Course Hospital Course: The patient underwent a successful right total hip arthroplasty, POD0 the patient experienced bradycardia and was transferred to [facility] for further Cardiology work up. After cardiac workup at [facility] the patient was found to no longer need any addition cardiac intervention and was transferred back to [facility], as [facility] was not getting the patient out of bed nor providing the patient with adequate physical therapy s/p total hip arthroplasty. During their stay, their vitals were stable, afebrile at 97.7. Labs were unremarkable, H/H 9.2/28.7. The patient was restarted on Coumadin, INR goal is to be maintain between 2-3. He also received Physical Therapy services twice a day. Prior to discharge, their dressing was clean dry and intact, there is some blistering from swelling near the bandage but no surrounding erythema or signs of infection. The plan was to be discharged to rehab for additional physical therapy before returning home. Time Attestation Discharge Coordination Time (in mins): 30 Quality: Safe Use of Opioids Does Pt have an Active Cancer Diagnosis on the Problem List?: No Quality: Stroke Does the patient have a stroke diagnosis?: No Physical Exam Vital Signs: Vital Signs: Last Vital Signs Temp 97.7 F 03/27/24 07:18 Pulse 53 03/27/24 07:18 Resp 18 03/27/24 07:18 BP 147/67 H 03/27/24 07:18 Pulse Ox 98 03/27/24 07:18 O2 Del Method Room Air 03/27/24 07:18 BMI result Body Mass Index 28.7 Const: General: cooperative, healthy appearing and no acute distress Resp: Effort & Inspection: normal respiratory effort and able to speak in complete sentences Cardio: Rate: regular rate Peripheral pulses: Peripheral pulses 2+ throughout GI: Palpation (GI): Soft to palpation Skin: Lesions: no lesions Rashes: no rashes Extrem: Other: right hip Aquacel is c/d/i. There is an area of blistering along the medial aspect of the Aquacel. No surrounding erythema or drainage. No signs of infection. Able to dosi/plantar flex. NVI. DS: Data Data Completed and Pending Completed studies during hospitalization [Text1]: Procedures Replacement of Right Hip Joint with Ceramic Synthetic Substitute, Uncemented, Open Approach (03/21/24) Labs on day of discharge: Laboratory Results - last 24 hr 03/26/24 03/26/24 03/26/24 07:56 11:47 12:47 WBC 4.9 RBC 3.42 L Hgb 9.2 L Hct 28.7 L MCV 83.9 MCH 26.9 L MCHC 32.1 RDW 15.6 Plt Count 155 L MPV 10.2 Immature Gran % (Auto) 0.2 Neut % (Auto) 75.7 H Lymph % (Auto) 11.6 L Banner % (Auto) 8.4 Eos % (Auto) 3.9 Baso % (Auto) 0.2 Lymph # (Auto) 0.6 L Banner # (Auto) 0.4 Eos # (Auto) 0.2 Baso # (Auto) 0.0 Abs Immat Gran (auto) 0.01 Absolute Neuts (auto) 3.7 Absolute Nucleated RBC 0.020 H Nucleated RBC % (auto) 0.4 H PT INR POC Glucose 146 H 181 H 03/26/24 03/26/24 03/27/24 16:12 20:41 05:55 WBC RBC Hgb Hct MCV MCH MCHC RDW Plt Count MPV Immature Gran % (Auto) Neut % (Auto) Lymph % (Auto) Banner % (Auto) Eos % (Auto) Baso % (Auto) Lymph # (Auto) Banner # (Auto) Eos # (Auto) Baso # (Auto) Abs Immat Gran (auto) Absolute Neuts (auto) Absolute Nucleated RBC Nucleated RBC % (auto) PT 40.7 H INR 3.3 H POC Glucose 150 H 173 H 03/27/24 07:10 WBC RBC Hgb Hct MCV MCH MCHC RDW Plt Count MPV Immature Gran % (Auto) Neut % (Auto) Lymph % (Auto) Banner % (Auto) Eos % (Auto) Baso % (Auto) Lymph # (Auto) Banner # (Auto) Eos # (Auto) Baso # (Auto) Abs Immat Gran (auto) Absolute Neuts (auto) Absolute Nucleated RBC Nucleated RBC % (auto) PT INR POC Glucose 138 H Discharge Plan Discharge Anticipated Discharge Date/Time: 03/27/24 15:07 Patient Disposition: Xfer SNF Discharge Diagnosis: s/p RTHA Referrals: Delisa Hartmann PA-C [Physician [employer]] - 04/06/24 1:30 pm Discharge Medications: New oxycodone 10 mg tablet 10 mg PO Q4H PRN (Reason: Pain, Moderate(Pain Scale 4-6)) 7 Days Qty: 42 0RF Rx Instructions: Partial Fill upon patient request. sennosides [Senna Lax] 8.6 mg Tablet 17.2 mg PO BEDTIME 30 Days Qty: 60 0RF docusate sodium 100 mg Capsule 200 mg PO DAILY 30 Days Qty: 60 0RF Continued (DME) walker Misc See Rx Instructions .MEDSUPPLY Qty: 1 0RF Rx Instructions: Folding Front wheeled walker latanoprost 0.005 % drops 1 drp ophthalmic (eye) BEDTIME lisinopril 10 mg tablet 10 mg PO DAILY dorzolamide 2 % drops 1 drp ophthalmic (eye) BID multivitamin Tablet 1 tab PO DAILY atorvastatin 20 mg tablet 20 mg PO DAILY warfarin 5 mg tablet 2.5 - 5 mg PO DAILY@1800 allopurinol 100 mg tablet 100 mg PO BEDTIME glipizide 2.5 mg tablet 2.5 mg PO BEDTIME Discontinued docusate sodium 100 mg capsule 100 mg PO BID PRN (Reason: Constipation) acetaminophen 325 mg Tablet 650 mg PO Q6H PRN (Reason: Pain, Mild (Pain Scale 1-3), fever or headache) 30 Days Qty: 240 0RF oxycodone 5 mg Tablet 5 mg PO Q4H PRN (Reason: Pain, Moderate(Pain Scale 4-6)) 7 Days Qty: 42 0RF Rx Instructions: Partial Fill upon patient request. Discharge Orders: Discharge Order (Routine); Ordered 03/27/24 Ordered By: Alison Lynch Diet: Advance to usual diet Activity on Discharge: Use cane or walker Stand Alone Forms: Patient Portal Discharge page Print Language: Syriac Care Plan Goals: Hold Coumadin monitor daily PT INR ,resume Coumadin once INR below 3, INR goal 2-3, received Coumadin 5 mg on 03/25 inr 3.3 on 03/27/24, Health Concerns: a.fib bradycardia Plan of Treatment: Physical Therapy for total hip arthroplasty: posterior precautions, gait training, ROM, strength Limit stair climbing No showering, no tub bath-keep dressing clean, dry and intact No driving x6 weeks Continue anticoagulant -Hold Coumadin monitor daily PT INR ,resume Coumadin once INR below 3, INR goal 2-3 Follow up with [facility] in 2 weeks Assessment: stable for d/c
[2024-03-27] MEDS: Atorvastatin Calcium 20 MG TABLET PO (07:48)
[2024-03-27] MEDS: lisinopriL 10 MG TABLET PO (07:48)
[2024-03-27] MEDS: Acetaminophen 325 MG TABLET 975 MG PO ×2 (07:48→14:06)
[2024-03-27] MEDS: Docusate Sodium 100 MG CAPSULE 200 MG PO (07:48)
[2024-03-27] MEDS: Multivitamin TABLET 1 TAB PO (07:49)
[2024-03-27] MEDS: 0.9 % Sodium Chloride Flush 3 ML SYRINGE IVFLUSH (07:50)
[2024-03-27] MEDS: Dorzolamide HCl 2 % Ophth Sol 10 ML DRPBTL 1 DROP EYE-BOTH (07:50)
--- NOTE | 2024-03-27 10:00 | P.PNOP_ITS ---
Subjective Subjective Date of Service: 03/27/24 Interval history: POD 6 s/p RT KAYLA with Dr Ramirez 03/21/24 Patient is resting in bed, states pain is tolerable when he does not move. He states he has been out of bed into a chair and working with PT denies sob , cp, palpitations Physical Exam Vital Signs: Vital Signs: Last Vital Signs Temp 97.7 F 03/27/24 07:18 Pulse 53 03/27/24 07:18 Resp 18 03/27/24 07:18 BP 147/67 H 03/27/24 07:18 Pulse Ox 98 03/27/24 07:18 O2 Del Method Room Air 03/27/24 07:18 BMI result Body Mass Index 28.7 Const: General: cooperative, healthy appearing and no acute distress Resp: Effort & Inspection: normal respiratory effort and able to speak in co mplete sentences Cardio: Rate: regular rate Peripheral pulses: Peripheral pulses 2+ throughout GI: Palpation (GI): Soft to palpation Skin: Lesions: no lesions Rashes: no rashes Extrem: Other: right hip Aquacel is c/d/i. There is an area of blistering along the medial aspect of the Aquacel. No surrounding erythema or drainage. No signs of infection. Able to dosi/plantar flex. NVI. Procedures Date of Service Date of Service: 03/27/24 Progress Note: A&P Assessment and plan (1) Status post total hip replacement, right: Status: Acute Assessment and Plan: Pain mgnmnt-caution with opiates due to confusion PT/OT for wbat posterior precautions patient should be out of bed for each meal Compression boots should be on Continue coumadin, INR 3.3 today-spoke with Dr Robison again today-Coumadin being held today and will redraw INR tomorrow am and resume if within normal range dispo-STR pending auth Time Spent With Patient Time: Total time managing care of this patient today ____ minutes. Quality Stroke Does the patient have a stroke diagnosis?: No VTE Prior VTE?: No VTE Risk Level:: Surgical - very high VTE Device Contraindication: N/A - Device Ordered VTE Drug Contraindication: N/A - Med Ordered
--- NOTE | 2024-03-27 10:20 | HO.WOUND ---
Wound Consult: Initial 78yr old Male? admitted to [facility] on 03/23/24 - See progress notes and H&P for detailed history.? Wound consult placed for Right Hip Skin injury outside of surgical incision.? Patient agreeable to assessment and photo documentation.? Chart review reveals patient has had a complicated stay with d/[place] [facility] [place] returned [place] [facility] currently pending d/c to rehab. Right Hip with Incision Right Hip wound Etiology: Abrasion suspect MARSI (Medical Adhesive Related Skin Injury Wound Bed: two areas outside of Post op dressing. Superior site red wound bed - inferior site with adherent moist yellow slough. Sites could be consistent with adhesive removal such as surgical drape Drainage / Odor: none noted Edges: ? irregular and attached Jessica wound: Mild erythema - ? No Induration, Fluctuance or Warmth noted - Surgical dressing not removed - peeled and observed edges of wounds they do not trail under the surgical dressing Pain: tender to touch Goals of Treatment: ?Moisture management for enhanced autolytic debridement Recommendations: 1. Right Hip (non incision wounds) - Cleanse sites with NS moist gauze, pat dry. Apply skin prep, cover wound beds with Durafiber AG and foam dressing. Change every 3 days. Re-consult wound care Nurse for wound deterioration or wound changes.
[2024-03-27 11:11] LABS: Glucose, Whole Blood 152 mg/dL (60-115)
[2024-03-27] MEDS: Insulin Lispro 100 UNIT/ML 3 ML VIAL SUBCUT (11:27)
--- NOTE | 2024-03-27 15:49 | MHC.CM.PN ---
Second IMM 03/27/24, pt has been medically cleared for DC, he will go to [facility] via BLS today.
[2024-03-27 16:07] LABS: Glucose, Whole Blood 164 mg/dL (60-115)
--- NOTE | 2024-03-27 16:56 | PC.NURSE ---
called [facility] to give RN to RN report at 16:56 but there was no answer
== END 2024-03-27 18:30 | disposition skilled nursing facility (03) | DRG 308 ==
PROVIDERS: Hospitalist; Student in an Organized Health Care Education/Training Program; Admitting Provider Physician Assistant; PCP Nurse Practitioner Adult Health; Visit Provider Physician Assistant
DX: R00.1 Bradycardia, unspecified (principal); G92.8 Other toxic encephalopathy; I35.0 Nonrheumatic aortic (valve) stenosis; I48.0 Paroxysmal atrial fibrillation; I12.9 Hypertensive chronic kidney disease with stage 1 through stage 4 chronic kidney disease, or unspecified chronic kidney disease; E78.5 Hyperlipidemia, unspecified; M10.9 Gout, unspecified; G47.33 Obstructive sleep apnea (adult) (pediatric); N18.30 Chronic kidney disease, stage 3 unspecified; T40.2X5A Adverse effect of other opioids, initial encounter; E11.22 Type 2 diabetes mellitus with diabetic chronic kidney disease; Z96.641 Presence of right artificial hip joint; Z79.01 Long term (current) use of anticoagulants; Z79.84 Long term (current) use of oral hypoglycemic drugs; Z79.899 Other long term (current) drug therapy
CPT/HCPCS: 36415; 80048; 82947; 85025; 85027; 85610; 97110; 97162; 97166; 97530; J1650; J2270; J7120

== ENCOUNTER → 2024-03-23 17:24 | Outpatient (BNV) | payer MEDICARE, SELFPAY | PROVIDERS: Admitting Provider Physician Assistant; Visit Provider Student in an Organized Health Care Education/Training Program | DX: R00.1 Bradycardia, unspecified (principal); Z96.641 Presence of right artificial hip joint; I48.91 Unspecified atrial fibrillation | CPT/HCPCS: 99231; 99232 ==

== ENCOUNTER → 2024-03-23 17:24 | Outpatient (BNV) | payer MEDICARE, SELFPAY | PROVIDERS: Admitting Provider Physician Assistant; Visit Provider Physician Assistant | DX: Z47.1 Aftercare following joint replacement surgery (principal); Z96.641 Presence of right artificial hip joint; R00.1 Bradycardia, unspecified; I48.91 Unspecified atrial fibrillation | CPT/HCPCS: 99024; 99499 ==

== ENCOUNTER 2024-04-06 13:21 | Outpatient (AMB) | payer MEDICARE, SELFPAY ==
--- NOTE | 2024-04-06 13:25 | A.OFFVIS_ITS ---
Intake Visit Reasons: 2WK PO: R KAYLA w/NE 03/21/24 Intake Note: Radu a 79 year old male who presents today for a post operative visit s/p right KAYLA on 03/21/24 NE. Patient reports he is doing well, states discomfort in his hip with the ride over to the office. Allergies No Known Allergies Allergy (Verified 04/06/24 13:36) Medication List - Last Reconciled 04/06/24 by Delisa Hartmann PA-C allopurinol 100 mg PO BEDTIME atorvastatin 20 mg PO DAILY docusate sodium 200 mg (2 x 100 mg) PO DAILY 30 days dorzolamide 2% 1 drp ophthalmic (eye) BID glipizide 2.5 mg PO BEDTIME latanoprost 0.005% 1 drp ophthalmic (eye) BEDTIME lisinopril 10 mg PO DAILY multivitamin 1 tab PO DAILY oxycodone 10 mg PO Q4H PRN 7 days sennosides (Senna Lax) 17.2 mg (2 x 8.6 mg) PO BEDTIME 30 days walker Folding Front wheeled walker warfarin 2.5 - 5 mg PO DAILY@1800 HPI HPI 2WK PO: R KAYLA w/NE 03/21/24: Details: 79-year-old male who returns to the office today for post-op right KAYLA. 03/21/[address] Ramirez. He states he had discomfort in his hip with the ride over to the office. He is doing well otherwise and has no other concerns today. [facility] Medical History (Updated 03/29/24 @ 00:02 by Kingsley Andre) Arthritis of right hip Bradycardia Arthritis Sleep apnea Chronic renal insufficiency Aortic stenosis Gout Hyperlipidemia Atrial fibrillation Prostate cancer Diabetes HTN (hypertension) Surgical History Hx of bilateral cataract extraction Hx of cholecystectomy History of lobectomy of thyroid H/O colonoscopy History of total left hip arthroplasty Social History Household Members: Significant Other Housing: House Housing Other:: apartment in a 4 family home Are you a primary customer care representative to a significant other at home: No Do you presently have visiting nurse or other home services: No Patient Tobacco Use Status: Never used Tobacco service: No Review of Systems Const All systems reviewed & are unremarkable except as noted in HPI and below Physical Exam Extrem Other: Right hip: Incision clean, dry and intact. No redness or drainage. Calf supple, nontender. NVI. Assessment & Plan Assessment & Plan (1) Status post total hip replacement, right: Code(s): Z96.641 - Presence of right artificial hip joint Category: Surgical Plan Lio removed, steri strips applied. He will begin to transition to Outpatient PT to continue working on Gait training, ROM and quad strength. No driving for another 4 weeks. He will require ppx abx for dental procedures. He will f/u in 4 weeks, sooner if needed. Patient Instructions: Scribed for Delisa Hartmann PA-C, by Darrell Celis medical malpractice paralegal, on 04/06/2024 at 1:30 PM EST.? I, Delisa Hartmann PA-C, have personally reviewed and agree with the information entered by the scribe. Coding Level of Care Code Global (67251) Diagnoses Status post total hip replacement, right Z96.641
== END 2024-04-06 14:19 | disposition home or self-care (01) ==
PROVIDERS: PCP Nurse Practitioner Adult Health; Visit Provider Physician Assistant
DX: Z96.641 Presence of right artificial hip joint (principal)
CPT/HCPCS: 99024

== ENCOUNTER → 2024-04-06 13:21 | Outpatient (BNVA) | payer MEDICARE, SELFPAY | PROVIDERS: PCP Nurse Practitioner Adult Health; Visit Provider Physician Assistant | DX: Z96.641 Presence of right artificial hip joint (principal) | CPT/HCPCS: 99212 ==